=== PATIENT | male | born 1960 | race Caucasian/White ===

== ENCOUNTER 2021-05-22 10:17 | Outpatient (CLI) | payer BC, SELFPAY ==
--- NOTE | 2021-05-22 11:08 | ECG_ITS ---
Measurements Intervals [place] Rate: 80 P: 12 PA: 152 QRS: 12 QRSD: 95 T: -8 QT: 358 QTc: 415 Interpretive Statements SINUS RHYTHM NORMAL ECG NO PREVIOUS ECG AVAILABLE FOR COMPARISON Electronically Signed On 05-22-2021 15:47:28 CDT by Kush Velasquez M.D.
[2021-05-22 11:41] LABS: Basophils Absolute Auto 0.1 K/mm3 (0.0-0.1); Basophils Percent Auto 0.8 % (0.2-1.2); Eosinophils Absolute Auto 0.4 K/mm3 (0-0.3); Eosinophils Percent Auto 5.7 % (0-4.4); Hematocrit 41.4 % (42.0-52.0); Hemoglobin 13.1 g/dL (14.0-18.0); Immature Granulocyte Absolute 0.03 K/mm3 (0.00-0.031); Immature Granulocyte Percent A 0.4 % (0-0.5); Lymphocytes Absolute Auto 1.97 K/mm3 (0.9-3.2); Lymphocytes Percent Auto 26.6 % (18.3-44.2); Mean Corpuscular HGB Conc 31.6 g/dl (32-36); Mean Corpuscular Hemoglobin 20.7 pg (26-34); Mean Corpuscular Volume 65.5 fl (80-100); Mean Platelet Volume 9.2 fl (7.4-10.4); Monocytes Absolute Auto 0.5 K/mm3 (0.1-0.6); Monocytes Percent Auto 7.3 % (2.6-8.5); Neutrophils Absolute Auto 4.4 K/mm3 (1.3-6.7); Neutrophils Percent Auto 59.2 % (45.5-73.1); Platelet Count Result 208 k/mm3 (150-375); Red Blood Count 6.32 M/mm3 (4.6-6.20); Red Cell Distribution Width 17.6 % (11.5-14.5); White Blood Count 7.4 K/mm3 (4.5-10.0)
[2021-05-22 11:51] LABS: Urine Cotinine NEGATIVE
[2021-05-22 11:54] LABS: INR 1.1; Partial Thromboplastin Time 28.2 SECONDS (22.3-36.8); Prothrombin Time 13.8 Seconds (11.1-14.7)
[2021-05-22 11:56] LABS: Albumin Level 4.5 g/dL (3.5-5.1); Anion Gap 9 mmol/L (8-16); Blood Urea Nitrogen 13 mg/dL (9-20); Calcium 9.3 mg/dL (8.4-10.2); Carbon Dioxide 28 mmol/L (22-30); Chloride 100 mmol/L (98-107); Estimated Glomerular Filt Rate > 60; Glucose 100 mg/dL (65-110); Potassium 3.6 mmol/L (3.4-5.0); Sodium 137 mmol/L (137-145)
[2021-05-22 12:21] LABS: Appearance Urine Clear (Clear); Bilirubin Urine Negative (Negative); Blood Urine Negative (Negative); Color Urine Yellow (Yellow); Glucose Urine UA Negative (Negative); Ketones Urine Negative (Negative); Leukocyte Esterase Ur Negative LEU/UL (Negative); Nitrate Urine Negative (Negative); Protein Urine Negative (Negative); Urobilinogen Urine 0.2 mg/dL (<2.0)
[2021-05-22 12:24] LABS: Mucus Urine Rare /lpf; RBC Urine 0-2 /hpf (0-2); WBC Urine 0-3 /hpf
[2021-05-22 12:28] LABS: Add Urine Microscopic? YES
[2021-05-22 12:39] LABS: Hemoglobin A1C 5.1 % (<5.7)
== END 2021-05-22 10:18 | disposition home or self-care (01) ==
LOC: ANHSURGERY 10:21
PROVIDERS: PCP Internal Medicine; Visit Provider Orthopaedic Surgery
DX: Z01.818 Encounter for other preprocedural examination (principal); M17.11 Unilateral primary osteoarthritis, right knee
CPT/HCPCS: 80048; 80307; 81001; 82040; 83036; 85025; 85610; 85730; 86850; 86900; 86901; 87081; 93005

== ENCOUNTER 2021-06-05 14:31 | Observation (INO) | payer BC, SELFPAY ==
[2021-05-22 10:28] VITALS: BMI 26.6
--- NOTE | 2021-05-22 10:51 | PC.NURSE ---
Report to the Outpatient Waiting Room, entrance under the green pavilion located off [facility], at time _0830 on date __06/04/21 . OR Time: __1030 . - You and your visitor will be asked a series of questions to screen for COVID 19 for your protection. - A mask is required within the hospital. Preoperative COVID Testing Requirements: No COVID Test needed if: (proof is required; if not received patient will have Rapid Test prior to entry) - Patient has received COVID Vaccine at least 14 days prior to procedure date or - Patient has positive COVID test result within last 90 days of surgery date. COVID Test needed if above criteria is not met If not COVID vaccinated a COVID test must be conducted within 72 hours of surgery and patient is asked to isolate self from time of testing until procedure. You will go to the [employer] [facility] for your COVID testing. The [employer] [facility] is located at the corner of [address] [facility]. You will only be called if COVID results are positive and your surgeon may reschedule your elective surgery date. Patients may have clear liquids (water, carbonated beverages, clear teas, apple juice) until 3 hours prior to surgery with a maximum of 20 ounces. - No food from midnight until time of surgery - Infants may have breast milk until 4 hours before surgery, infant formula 6 hours prior to surgery. - Children will be allowed to drink immediately following surgery. If applicable, please bring a bottle or sippy cup to assist with drinking. Juice, water, soda, and popsicles are readily available. For infants on formula, please bring formula the day of surgery. Pacifiers are allowed. Take the following medications with a SIP of water the morning of surgery: _INHALER IF NEEDED,NASAL SPRAY Medications to discontinue per physician ____ALL VITAMINS AND SUPPLEMENTS 3 DAYS PRE OP Date to take last dose___05/31/21 Please no make-up, nail albanian, hairspray, perfume, deodorant, or body powder the day of surgery. No jewelry (including any body piercings) or valuables the day of surgery, leave them at home. Please take a shower or bath the night before, or the morning of, surgery with an antibacterial soap. Wear comfortable, loose fitting clothing. Children are encouraged to wear pajamas. - Jewelry must be removed prior to entering the operating room. Rings and piercings that are not removed may be cut off. - The hospital will not accept responsibility for valuables. - Please leave all valuables, including medications, at home the day of surgery. If you are going home after surgery, a licensed clamp truck driver must drive you home. - NO public transportation without another adult. - We recommend that an adult stay with you for 24 hours following discharge. - We also recommend that you do not drive, make important decision, drink alcoholic beverages, or take any drugs that were not prescribed by your health care provider for at least 24 hours after your discharge time. For Pediatric surgeries, we recommend two adults accompany the child home (only one inside the building at this time). One visitor will be allowed to accompany the patient into the hospital. Patients visitor will be instructed to remain with patient at all times or leave the building. We will allow the visitor to come back to the postoperative area when patient is ready. Follow any additional instructions given to you from your surgeon. VERBAL AND WRITTEN instructions given to ___PATIENT and asked if any additional questions and then verbalized understanding. Patient advised to call surgeon office or pre surgery nurse liaison [phone] if any additional questions.
[2021-05-22 11:07] VITALS: BP 136/87; PULSE 71; RESP 18; TEMP 37; O2SAT 99
[2021-06-04] VITALS (12 sets, daily range): BP systolic 118–150; BP diastolic 67–89; PULSE 62–91; RESP 11–20; TEMP 36.1–36.9; O2SAT 93–99
--- NOTE | 2021-06-04 07:07 | WPDHPUPDATE1 ---
History and Physical Update Update Date/Time: 06/04/21 07:07 History and Physical has been reviewed, including an updated exam of the patient. There are NO changes in the patient's condition. Risks, benefits, and alternatives have been discussed and questions answered. Patient agrees to proceed with procedure.
--- NOTE | 2021-06-04 09:12 | WPDANESEPPF ---
Anes - Initial Pre Proc Eval Procedure: Operation Date: 06/04/21 10:30 Proposed Procedures p Right Total Knee Arthroplasty - Chucho Carvajal MD Date/Time: 06/04/21 09:12 Surgeon: Chucho Carvajal MD Pre Op Diagnosis: right knee djd Patient Data Age: 60 Gender: M Height: 1.78 m Weight: 84.3 kg Last Vital Signs Temp 37.0 C 05/22/21 11:07 Pulse 71 05/22/21 11:07 Resp 18 05/22/21 11:07 BP 136/87 05/22/21 11:07 Pulse Ox 99 05/22/21 11:07 Allergies Allergy/AdvReac Type Severity Reaction Status Date / Time NSAIDS (Non-Steroidal Allergy Difficulty Verified 06/04/21 09:13 Anti-Inflamma Breathing Home Medications Medication Instructions Recorded Confirmed Type diphenhydramine HCl 25 mg capsule 25 mg PO TID PRN 11/07/19 05/26/21 History losartan 100 1 tablet PO DAILY 11/07/19 06/04/21 History mg-hydrochlorothiazide 25 mg tablet brlmrkfmxcfa-fuddugwb-gyvqze tablet 1 tablet PO DAILY 11/07/19 06/04/21 History phenylephrine HCl 10 mg tablet 10 mg PO Q4-6H PRN 11/07/19 06/04/21 History tamsulosin 0.4 mg capsule 0.4 mg PO DAILY 11/07/19 06/04/21 History vit C,L-Cx-rsouo-lutein-zeaxan 1 tablet PO DAILY 11/07/19 06/04/21 History [PreserVision AREDS-2] acetaminophen [Tylenol] 650 mg PO PRN PRN 05/22/21 06/04/21 History albuterol 1 mcg INHALATION PRN PRN 05/22/21 06/04/21 History azelastine 1 spray INTRANASAL HS 05/22/21 06/04/21 History budesonide 0.5 mg INHALATION DAILY 05/22/21 05/26/21 History fluticasone furoate-vilanterol 2 ea INHALATION PRN PRN 05/22/21 06/04/21 History [Breo Ellipta] chlorhexidine gluconate 4 % 1 applic TOPICAL ONCE #237 ml 05/26/21 05/26/21 Rx topical liquid Patient hx anesthesia problems: none Family hx anesthesia problems: none Results Review: All pre-operative results and documents have been reviewed as part of the pre-operative evaluation. [facility] Past Medical History Medical History (Updated 06/04/21 @ 09:12 by Quentin Palmer DO) Anemia Asthma Bilateral knee pain Degenerative joint disease of knee Hypertension Kidney stones Knee effusion Left knee DJD Right knee DJD Skin cancer Thalassemia Family History Family History Other Diabetes mellitus Hypertension Social History Social History (Updated 04/17/21 @ 12:10 by Celeste Chin MA) Additional smoking assessment comments: DENIES ANY FORM OF TOBACCO USE Alcohol intake: current Drinks per week: 1 Substance use: never Living arrangements: with family Gender identity (if verbalized by the patient): Male Spiritual care concerns: No Anes - Eval Final PreProcedure Day of Procedure 06/04/21 09:12 Patient weight: overweight Heart: regular rate and rhythm Lungs: clear to auscultation and normal air movement Airway: Mallampati scale class II Neurological: alert and oriented Last oral intake: >/= 8 hours ASA classification: II Emergent: no Anesthetic plan: proceed Anesthesia type and monitoring: general LMA and standard monitoring Results Review: All pre-operative results and documents have been reviewed as part of the pre-operative evaluation. Informed Consent: The patient's anesthetic plan and its attendant risks and benefits were discussed with the patient/family/POA. Questions were solicited and answers provided to the satisfaction of the patient/family/POA.
--- NOTE | 2021-06-04 09:12 | WPDANESPNB ---
Anes - Peripheral Nerve Block Date/Time: 06/04/21 09:12 I have discussed with the patient/family/POA the placement of a peripheral nerve block for post-operative pain management, including associated risks, benefits, complications, and side effects. Alternative methods of post-operative analgesia were detailed. Questions were solicited and answers provided to the satisfaction of the patient/family/POA. Time-Out: A pre-procedural Time-Out was completed immediately before starting the procedure and confirmed: Patient Identification, Site, Procedure, Patient Position and the Availability of Requisite Equipment. Clinical Indications: Acute post-operative pain management requested by the operative surgeon. Nerve Block Insertion Note Anes-nerve block: adductor canal right Patient position: supine Skin prep: chlorhexidine Needle: 22 gauge, stimulating, insulated echogenic needle. Needle length: 80 mm Technique: ultrasound Injectate: bupivacaine 0.5% with epi 5 mcg/ml (30cc - no epi) Observations: tolerated well Complications: none Procedure start time:: 1005 Procedure end time:: 100
[2021-06-04] MEDS: ACETAMINOPHEN 500 MG TABLET 1000 MG PO (09:25)
[2021-06-04] MEDS: TRANEXAMIC ACID 1,000MG/ISO100 1,000 MG/100 ML BAG 200 MG IVPB (09:35)
[2021-06-04] MEDS: LACTATED RINGERS 1,000 ML 30 ML IV CONT ×2 (09:35→12:07)
[2021-06-04] MEDS: ceFAZolin 2 GM/D5W 50 ML 2 GM/50 ML BAG IVPB ×2 (10:12→17:50)
[2021-06-04] MEDS: TRANEXAMIC ACID 1,000 MG/10 ML AMPUL 1000 MG IV PUSH (11:20)
--- NOTE | 2021-06-04 12:09 | W.PM.PROC2 ---
Procedure Note - Detailed Date of Procedure 06/04/21 Pre-op Diagnosis right knee djd Post-op Diagnosis Same Procedure Performed R TKA Surgeon Chucho Carvajal MD Anesthesia General Description of Procedure THE RIGHT KNEE WAS PREPPED AND DRAPED IN THE STERILE FASHION. THERE WAS A 10 DEGREE FLEXION CONTRACTURE. A MIDLINE SKIN INCISION WAS MADE. A MEDIAL PARAPATELLAR ARTHROTOMY WAS MADE. THE PATELLA WAS EVERTED. THERE WAS TRICOMPARTMENT DJD. THERE WAS MINIMAL PATELLA DJD. AN INTRAMEDULLARY RAMIRO WAS PLACED IN THE FEMUR. A DISTAL FEMORAL CUT WAS MADE IN 5 DEGREES OF VALGUS REMOVING APPROXIMATELY 9 MM OF BONE FROM THE DISTAL FEMUR. THE FEMUR WAS SIZED TO 65. A 65 FEMORAL CUTTING BLOCK WAS PLACED IN 3 DEGREES OF EXTERNAL ROTATION AND IN ALIGNMENT WITH ERAN'S LINE AND THE TRANSEPICONDYLAR AXIS. ANTERIOR POSTERIOR AND CHAMFER CUTS WERE MADE. THE CUTS WERE EXCELLENT. NEXT AN INTRAMEDULLARY CUTTING GUIDE WAS PLACED IN THE TIBIA. A TRANS TIBIAL CUT WAS MADE ALONG THE LONG AXIS OF THE TIBIA. APPROXIMATELY 10 MM OF BONE WAS REMOVED FROM THE HIGH SIDE OF THE TIBIA. THE TIBIA WAS THEN PLANED TO A SMOOTH SURFACE. POSTERIOR FEMORAL OSTEOPHYTES WERE REMOVED FROM THE FEMORAL CONDYLES. A 71 TIBIAL TRIAL WAS PLACED IN ALIGNMENT WITH THE 1/3 MEDIAL ASPECT OF THE TIBIAL TUBERCLE. THEN A 65 FEMORAL TRIAL COMPONENT WAS PLACED. BOTH HAD EXCELLENT FITS. EVENTUALLY A 10 MM CR POLYETHYLENE TRIAL COMPONENT WAS PLACED. THE KNEE WAS TAKEN THROUGH A RANGE OF MOTION. THE KNEE CAME OUT TO FULL EXTENSION. THERE WAS NO ABNORMAL TILT TO THE PATELLA. THERE WAS GOOD A/P AND VARUS/VALGUS STABILITY. THERE WAS NO EXCESSIVE ROLL BACK WITH FLEXION. THE TRIAL COMPONENTS WERE REMOVED. THEN A 65 FEMORAL COMPONENT AND 71 TIBIAL COMPONENT WITH A 10 CR POLYETHYLENE COMPONENT WERE CEMENTED INTO PLACE. ONCE THE CEMENT WAS HARD THE KNEE WAS TAKEN THROUGH A ROM AGAIN AND FOUND TO BE STABLE WITH NO PATELLA TILT NO EXCESSIVE ROLL BACK WITH FLEXION AND GOOD STABILITY WITH COMPLETE AND FULL EXTENSION. THE KNEE WAS IRRIGATED WITH STERILE BETADINE AND WATER FOR ABOUT 3 MINUTES. THE BLEEDERS WERE CAUTERIZED. THE ARTHROTOMY WAS REPAIRED WITH NUMBER 1 VICRYL. THE SUB CUTANEOUS LAYER WITH 2-0 VICRYL AND 3-0 STRATAFIX AND THEN DERMABOND ON THE SKIN. THE WOUND WAS WASHED AND A STERILE DRESSING WAS APPLIED. PATIENT WAS EXTUBATED. Estimated Blood Loss -150.0 Pathology None sent Complications No immediate complications Condition Stable Disposition PACU
[2021-06-04] MEDS: fentaNYL CITRATE INJ (*CRX) 100 MCG/2 ML VIAL 25 MCG IV PUSH ×2 (12:37→12:45)
--- NOTE | 2021-06-04 13:16 | ADMGEN ---
This patient, Matt Prabhakar, was admitted to Medical Room 247-. Patient/family oriented to hospital policies and general routines including ID bracelet, bed and alarms, visiting hours, pain management, procedures, bathroom and other care routines, personal items, smoking policy, room service/diet, and visiting hours. Information on how to activate the Rapid Response Team has been discussed. Patient/Family are encouraged to report perceived risks to care and to ask questions if they do not understand what they are told or what they should do.
[2021-06-04] MEDS: oxyCODONE/ACETAMINOPHEN (*CRX) 5-325 MG TABLET 1 TABLET PO (13:47)
[2021-06-04] MEDS: SODIUM CHLORIDE 0.9% IV 1,000 ML 125 ML IV CONT (13:48)
[2021-06-04] MEDS: ONDANSETRON INJ 4 MG/2 ML VIAL IV PUSH (14:30)
[2021-06-04] MEDS: SENNA/DOCUSATE SODIUM TABLET 2 TAB PO (16:43)
[2021-06-04] MEDS: oxyCODONE/ACETAMINOPHEN (*CRX) 5-325 MG TABLET 2 TABLET PO ×2 (17:46→23:39)
[2021-06-04] MEDS: diazePAM (*CRX) 5 MG TABLET PO (19:23)
[2021-06-04] MEDS: RIVAROXABAN 10 MG TABLET PO (21:39)
[2021-06-04] MEDS: MORPHINE SULFATE (*CRX) 2 MG/ML INJ 3 MG IV PUSH (21:40)
[2021-06-04] MEDS: hydrOXYzine pamoate 25 MG CAPSULE 50 MG PO (21:40)
[2021-06-05] VITALS (8 sets, daily range): BP systolic 125–158; BP diastolic 66–80; PULSE 72–92; RESP 12–18; TEMP 36.2–36.7; O2SAT 95–97
--- NOTE | ~2021-06-05 | XR_ITS ---
EXAMINATION: XR knee RT 2V DATE: 06/04/2021 12:29 INDICATION: Right knee arthroplasty. Postop. TECHNIQUE: 2 views of right knee were obtained. COMPARISON: Right knee radiographs 04/17/2021 FINDINGS: There is a total right knee arthroplasty without patellar resurfacing in near-anatomic alig nment. No fracture. There has been resection of osteophytes of the patella. There is gas in the knee joint and soft tissues, consistent with recent surgery. IMPRESSION: 1. Total right knee arthroplasty in near-anatomic alignment. Reviewed, dictated and finalized at location A.
[2021-06-05] MEDS: ceFAZolin 2 GM/D5W 50 ML 2 GM/50 ML BAG IVPB ×2 (01:38→11:04)
[2021-06-05] MEDS: MORPHINE SULFATE (*CRX) 2 MG/ML INJ 3 MG IV PUSH ×4 (01:39→20:38)
[2021-06-05] MEDS: oxyCODONE/ACETAMINOPHEN (*CRX) 5-325 MG TABLET 2 TABLET PO ×4 (05:38→23:45)
[2021-06-05 05:41] LABS: Basophils Percent Auto 0.3 % (0.2-1.2); Eosinophils Percent Auto 0.2 % (0-4.4); Hematocrit 30.9 % (42.0-52.0); Hemoglobin 10.1 g/dL (14.0-18.0); Immature Granulocyte Absolute 0.07 K/mm3 (0.00-0.031); Immature Granulocyte Percent A 0.6 % (0-0.5); Lymphocytes Absolute Auto 1.54 K/mm3 (0.9-3.2); Mean Corpuscular HGB Conc 32.7 g/dl (32-36); Mean Corpuscular Hemoglobin 20.6 pg (26-34); Mean Corpuscular Volume 63.1 fl (80-100); Mean Platelet Volume 9.3 fl (7.4-10.4); Monocytes Absolute Auto 1.2 K/mm3 (0.1-0.6); Monocytes Percent Auto 10.9 % (2.6-8.5); Neutrophils Absolute Auto 8.1 K/mm3 (1.3-6.7); Platelet Count Result 171 k/mm3 (150-375); Red Cell Distribution Width 14.9 % (11.5-14.5)
[2021-06-05 05:50] LABS: Anion Gap 7 mmol/L (8-16); Blood Urea Nitrogen 10 mg/dL (9-20); Calcium 8.2 mg/dL (8.4-10.2); Carbon Dioxide 26 mmol/L (22-30); Chloride 93 mmol/L (98-107); Estimated CRCL calculation 87 ml/min; Estimated Glomerular Filt Rate > 60; Glucose 138 mg/dL (65-110); Potassium 3.2 mmol/L (3.4-5.0); Sodium 126 mmol/L (137-145)
[2021-06-05] MEDS: ONDANSETRON INJ 4 MG/2 ML VIAL IV PUSH (07:40)
[2021-06-05] MEDS: polyethylene glycoL 3350 17 GM POWD.PACK PO (08:36)
[2021-06-05] MEDS: SENNA/DOCUSATE SODIUM TABLET 2 TAB PO ×2 (08:36→17:57)
[2021-06-05] MEDS: LOSARTAN POTASSIUM 100 MG TABLET PO (08:36)
[2021-06-05] MEDS: TAMSULOSIN HCL 0.4 MG CAPSULE PO (08:36)
[2021-06-05] MEDS: diazePAM (*CRX) 5 MG TABLET PO (08:36)
--- NOTE | 2021-06-05 10:17 | WPDANESPN ---
Anes - Prog Note Post-Op Date/Time: 06/05/21 10:17 Cardiovascular status: normal Respiratory status: normal Airway patency: baseline Mental status: baseline Post-Op hydration status: normal Vital Signs: Last Vital Signs Temp 36.2 C L 06/05/21 06:25 Pulse 85 06/05/21 06:25 Resp 18 06/05/21 06:25 BP 126/67 06/05/21 06:25 Pulse Ox 96 06/05/21 06:25 Pain Score (VAS): 4 I/O: Intake & Output 06/04/21 06/05/21 06/05/21 23:59 07:59 15:59 Intake Total 1060 600 Output Total 1050 700 Balance 10 -100 Laboratory Tests 06/05/21 05:12 06/05/21 05:12 06/05/21 06/05/21 05:12 05:12 WBC 11.0 H RBC 4.90 Hgb 10.1 L D Hct 30.9 L MCV 63.1 L MCH 20.6 L MCHC 32.7 RDW 14.9 H Plt Count 171 MPV 9.3 Immature Gran % (Auto) 0.6 H Neut % (Auto) 74.0 H Lymph % (Auto) 14.0 L Bleck[place] % (Auto) 10.9 H Eos % (Auto) 0.2 Baso % (Auto) 0.3 Lymph # (Auto) 1.54 [place]ck[place] # (Auto) 1.2 H Eos # (Auto) 0.0 Baso # (Auto) 0.0 Abs Immat Gran (auto) 0.07 H Absolute Neuts (auto) 8.1 H Absolute Nucleated RBC 0.0 Nucleated RBC % 0.0 Sodium 126 L Potassium 3.2 L Chloride 93 L Carbon Dioxide 26 Anion Gap 7 L BUN 10 Creatinine 0.80 Estim Creat Clear Calc 87 Estimated GFR > 60 Glucose 138 H Calcium 8.2 L Post-procedural complaints: none Patient Feedback: Patient satisfied with anesthetic care.
--- NOTE | 2021-06-05 10:18 | PM.PNORT ---
Progress Note: A&P Assessment and Plan (1) S/P total knee arthroplasty: Qualifiers: Laterality: right Qualified Code(s): Z96.651 - Presence of right artificial knee joint Code(s): Z96.659 - Presence of unspecified artificial knee joint Status: Acute Assessment and Plan: POD #1: Right TKA Difficulty with nausea, continue antiemetic. Continue PT/OT. WBAT. Walker. FALL RISK. Pain control, nursing notified of increased pain. DVT prophylaxis. SCDs. Incentive spirometry. Monitor dressing. Change before discharge. Dispo: Home with home health pending improvement in pain control and progress with PT/OT. Time Spent With Patient Time with patient: less than 15 minutes Subjective Subjective Date/Time Seen: 06/05/21 10:18 Post Op day: 1 Interval history: POD #1: Right TKA Difficulty with pain control this morning. Nausea, no vomiting. Decreased appetite. Slow progress with PT/OT. Review of Systems Constitutional: Constitutional: Denies fatigue, Denies fever(s) and Denies weakness Cardiovascular: Cardiovascular: Denies chest pain, Denies lightheadedness and Denies palpitations Respiratory: Respiratory: Denies cough, Denies dyspnea and Denies wheezing Gastrointestinal: Gastrointestinal: Denies abdominal pain, Reports nausea and Denies vomiting Genitourinary: Genitourinary: Denies dysuria Musculoskeletal: Musculoskeletal: Reports as per HPI Exam Const: General: comfortable and no acute distress Resp: Effort & Inspection: normal respiratory effort Cardio: Rate: regular rate Rhythm: regular rhythm GI: GI Palp: Yes Soft to palpation, No Tenderness to palpation present (GI) and No Guarding due to palpation present (GI) Skin: Wounds: wounds noted Other: Incision c/d/i. No surrounding redness/warmth. No hematoma. Mild ecchymosis. No wound dehiscence Neuro: Cognition (Neuro): normal cognition Other: NV intact aside from block. Moves toes. Sensation intact to light touch. +ankle dorsiflexion/plantarflexion. Extrem: Right lower extremity: normal to inspection and knee Details: tenderness (diffuse, mild ), swelling (diffuse, mild ), abnormal ROM (limited due to recent surgical intervention ) and ecchymosis (mild medial lower leg ) Psych: Mental Status: mental status grossly normal Objective Data Vital Signs Vital Signs: Vital Signs - 24 hr 06/04/21 12:07 06/04/21 12:25 06/04/21 12:40 Temperature 36.4 C Pulse Rate 67 90 74 Respiratory Rate 11 L 18 18 Blood Pressure 118/67 121/74 137/74 Pulse Oximetry 97 97 97 06/04/21 12:55 06/04/21 13:27 06/04/21 13:36 Temperature 36.6 C 36.3 C L Pulse Rate 84 71 67 Respiratory Rate 19 14 12 Blood Pressure 130/79 131/70 134/71 Pulse Oximetry 96 93 96 06/04/21 13:54 06/04/21 15:09 06/04/21 17:50 Temperature 36.9 C 36.3 C L 36.6 C Pulse Rate 91 62 72 Respiratory Rate 12 12 16 Blood Pressure 126/74 121/67 132/69 Pulse Oximetry 96 97 99 06/04/21 20:20 06/04/21 22:54 06/05/21 02:54 Temperature 36.1 C L 36.4 C Pulse Rate 80 85 Respiratory Rate 20 18 Blood Pressure 136/67 125/69 Pulse Oximetry 98 99 97 06/05/21 06:25 Temperature 36.2 C L Pulse Rate 85 Respiratory Rate 18 Blood Pressure 126/67 Pulse Oximetry 96 Intake/Output Intake/Output: Intake & Output 06/02/21 06/03/21 06/04/21 06/05/21 23:59 23:59 23:59 23:59 Intake Total 1610 600 Output Total 1050 700 Balance 560 -100 Meds/Results Medications: Active Medications Generic Name Dose Route Start Last Admin Trade Name Freq PRN Reason Stop Dose Admin Acetaminophen 650 mg 06/04/21 13:09 Acetaminophen 325 Mg Tablet PO PRN PRN Pain 1-3 Albuterol 1 puff 06/04/21 13:34 Albuterol Sulfate (*Sp) Aerosol 1 Puff INHALATION PRN PRN Shortness Of Breath Diazepam 5 mg 06/04/21 13:09 06/05/21 08:36 Diazepam (*Crx) 5 Mg Tablet PO 5 mg Q8H PRN Administration Spasms Diphenhydramine HCl 25 mg 06/04
[2021-06-05 11:21] LABS: Magnesium 1.6 mg/dL (1.6-2.3)
[2021-06-05] MEDS: POTASSIUM CHLORIDE 20 MEQ PACKET (FOR LIQUID) 40 MEQ PO (11:41)
--- NOTE | 2021-06-05 14:27 | P.CONIM_ITS ---
Assessment and Plan Assessment and plan (1) S/P total knee arthroplasty: Qualifiers: Laterality: right Qualified Code(s): Z96.651 - Presence of right artificial knee joint Code(s): Z96.659 - Presence of unspecified artificial knee joint Status: Acute Assessment and Plan: * POD 0 * Ortho to manage post op care * Pain medication * Antibiotic: cefazolin x3 bags * Zofran from nausea * PT/OT * DVT prophylaxis per ortho (2) Hyponatremia: Code(s): E87.1 - Hypo-osmolality and hyponatremia Status: Acute Assessment and Plan: * NA 126 * Sodium chloride at 100ml/hr * Trend sodium * Repeat lab at 1999 * Consider nephrology consult * Hold HCTZ which could cause hyponatremia (3) Hypokalemia: Code(s): E87.6 - Hypokalemia Status: Acute Assessment and Plan: * K is 3.2 * Replaced with 40 PO potassium * trend labs replace as indicated (4) Hypomagnesemia: Code(s): E83.42 - Hypomagnesemia Status: Acute Assessment and Plan: * Mg 1.6 * Replace with 4 grams * Trend labs * Replace as indicated (5) BPH (benign prostatic hyperplasia): Code(s): N40.0 - Benign prostatic hyperplasia without lower urinary tract symptoms Status: Acute Assessment and Plan: * Continue home tamsulosin * Trend urine output * bladder scan PRN (6) Hypertension: Code(s): I10 - Essential (primary) hypertension Status: Acute Assessment and Plan: * Current BP is 141/69 * Continue home losartan * Hold HCTZ due to hyponatremia * trend BP * Adjust therapy as indicated HPI Data of Consult Consult date: 06/05/21 Requesting Physician: Chucho Carvajal MD Primary Care Provider: CRUZ,PRABHJOT Harvey MD Consult Narrative Narrative: Matt Prabhakar is a 60 year old male with past medical history of hypertension, kidney stones, BPH, basal cell carcinoma who was admitted from an elective total knee replacement on the right side with Dr. Childress today 06/05/2021. Postsurgical procedure patient was noted to have an electrolyte imbalance with a sodium of 126 and a potassium of 3.2. Patient does state that he has lots of pain 8/10. He denies any increased confusion however has been tired more than usual. He did state that he drinks a lot of water roughly 64 oz a day. Asked if he was having urinary difficulties any stated would goes and comes out sometimes just longer than others. He iterated that he does not feel like he fully empties all the time however no takes that he has had many kidney stones and lithotripsies in the past. Currently patient feels okay except for the pain. He denies any chest pain, shortness of breath, nausea, vomiting, diarrhea, constipation, weakness, fatigue, sweats, fevers, chills, numbness, tingling, headaches. Patient is being admitted to the hospital service under observation for electrolyte abnormalities Review of Systems 2 Review of Systems: All systems reviewed & are unremarkable except as noted in HPI and below PMFSH Past Medical History Medical History (Updated 06/05/21 @ 14:59 by Ephraim Gurrola, [employer]) Anemia Asthma Bilateral knee pain Degenerative joint disease of knee Hypertension Kidney stones Knee effusion Left knee DJD Right knee DJD Sinusitis Skin cancer Thalassemia Surgical History Surg
--- NOTE | 2021-06-05 14:27 | PM.IMCN ---
Assessment and Plan Assessment and plan (1) S/P total knee arthroplasty: Qualifiers: Laterality: right Qualified Code(s): Z96.651 - Presence of right artificial knee joint Code(s): Z96.659 - Presence of unspecified artificial knee joint Status: Acute Assessment and Plan: POD 0 Ortho to manage post op care Pain medication Antibiotic: cefazolin x3 bags Zofran from nausea PT/OT DVT prophylaxis per ortho (2) Hyponatremia: Code(s): E87.1 - Hypo-osmolality and hyponatremia Status: Acute Assessment and Plan: NA 126 Sodium chloride at 100ml/hr Trend sodium Repeat lab at 1999 Consider nephrology consult Hold HCTZ which could cause hyponatremia (3) Hypokalemia: Code(s): E87.6 - Hypokalemia Status: Acute Assessment and Plan: K is 3.2 Replaced with 40 PO potassium trend labs replace as indicated (4) Hypomagnesemia: Code(s): E83.42 - Hypomagnesemia Status: Acute Assessment and Plan: Mg 1.6 Replace with 4 grams Trend labs Replace as indicated (5) BPH (benign prostatic hyperplasia): Code(s): N40.0 - Benign prostatic hyperplasia without lower urinary tract symptoms Status: Acute Assessment and Plan: Continue home tamsulosin Trend urine output bladder scan PRN (6) Hypertension: Code(s): I10 - Essential (primary) hypertension Status: Acute Assessment and Plan: Current BP is 141/69 Continue home losartan Hold HCTZ due to hyponatremia trend BP Adjust therapy as indicated HPI Data of Consult Consult date: 06/05/21 Requesting Physician: Chucho Carvajal MD Primary Care Provider: CRUZ,PRABHJOT Harvey MD Consult Narrative Narrative: Matt Prabhakar is a 60 year old male with past medical history of hypertension, kidney stones, BPH, basal cell carcinoma who was admitted from an elective total knee replacement on the right side with Dr. Childress today 06/05/2021. Postsurgical procedure patient was noted to have an electrolyte imbalance with a sodium of 126 and a potassium of 3.2. Patient does state that he has lots of pain 8/10. He denies any increased confusion however has been tired more than usual. He did state that he drinks a lot of water roughly 64 oz a day. Asked if he was having urinary difficulties any stated would goes and comes out sometimes just longer than others. He iterated that he does not feel like he fully empties all the time however no takes that he has had many kidney stones and lithotripsies in the past. Currently patient feels okay except for the pain. He denies any chest pain, shortness of breath, nausea, vomiting, diarrhea, constipation, weakness, fatigue, sweats, fevers, chills, numbness, tingling, headaches. Patient is being admitted to the hospital service under observation for electrolyte abnormalities Review of Systems Review of Systems: All systems reviewed & are unremarkable except as noted in HPI and below PMFSH Past Medical History Medical History (Updated 06/05/21 @ 14:59 by JUDE Everett) Anemia Asthma Bilateral knee pain Degenerative joint disease of knee Hypertension Kidney stones Knee effusion Left knee DJD Right knee DJD Sinusitis Skin cancer Thalassemia Surgical History Surgical History (Updated 06/05/21 @ 14:31 by JUDE Everett) H/O lithotripsy S/P total knee arthroplasty Family History Family History Other Diabetes mellitus Hypertension Social History Social History (Updated 06/05/21 @ 14:45 by JUDE Everett) Social History: patient's shared will be his surrogate and patient wishes to be a full code at this time. They have 2 kids 26 and 22-year-old with no pets at home. Patient is [employer] Smoking status: Never smoker Second hand tobacco smoke exposur
[2021-06-05] MEDS: MAGNESIUM SULF 4 GM/WATER100ML 4 GM/100 ML BAG IVPB (15:41)
[2021-06-05] MEDS: SODIUM CHLORIDE 0.9% IV 1,000 ML 100 ML IV CONT (15:41)
[2021-06-05] MEDS: RIVAROXABAN 10 MG TABLET PO (17:57)
[2021-06-06] VITALS (8 sets, daily range): BP systolic 140–153; BP diastolic 7–79; PULSE 83–92; RESP 14–21; TEMP 36.8–37.8; O2SAT 95–100
[2021-06-06] MEDS: SODIUM CHLORIDE 0.9% IV 1,000 ML 100 ML IV CONT (04:38)
[2021-06-06 06:12] LABS: Basophils Percent Auto 0.2 % (0.2-1.2); Eosinophils Absolute Auto 0.1 K/mm3 (0-0.3); Eosinophils Percent Auto 0.4 % (0-4.4); Hematocrit 29.1 % (42.0-52.0); Hemoglobin 9.4 g/dL (14.0-18.0); Immature Granulocyte Absolute 0.11 K/mm3 (0.00-0.031); Immature Granulocyte Percent A 0.8 % (0-0.5); Lymphocytes Absolute Auto 1.39 K/mm3 (0.9-3.2); Lymphocytes Percent Auto 10.7 % (18.3-44.2); Mean Corpuscular HGB Conc 32.3 g/dl (32-36); Mean Corpuscular Hemoglobin 20.9 pg (26-34); Mean Corpuscular Volume 64.8 fl (80-100); Mean Platelet Volume 9.8 fl (7.4-10.4); Monocytes Absolute Auto 1.3 K/mm3 (0.1-0.6); Monocytes Percent Auto 9.7 % (2.6-8.5); Neutrophils Absolute Auto 10.1 K/mm3 (1.3-6.7); Neutrophils Percent Auto 78.2 % (45.5-73.1); Platelet Count Result 159 k/mm3 (150-375); Red Blood Count 4.49 M/mm3 (4.6-6.20); Red Cell Distribution Width 15.1 % (11.5-14.5)
[2021-06-06 06:16] LABS: Alanine Aminotransferase 20 U/L (4-50); Albumin Level 3.1 g/dL (3.5-5.1); Alkaline Phosphatase 46 U/L (38-126); Anion Gap 4 mmol/L (8-16); Aspartate Amino Transferase 27 U/L (17-59); Bilirubin,Total 0.8 mg/dL (0.2-1.3); Blood Urea Nitrogen 6 mg/dL (9-20); Calcium 7.6 mg/dL (8.4-10.2); Carbon Dioxide 26 mmol/L (22-30); Chloride 92 mmol/L (98-107); Estimated CRCL calculation 99 ml/min; Estimated Glomerular Filt Rate > 60; Glucose 129 mg/dL (65-110); Magnesium 2.1 mg/dL (1.6-2.3); Potassium 3.6 mmol/L (3.4-5.0); Sodium 122 mmol/L (137-145)
[2021-06-06] MEDS: oxyCODONE/ACETAMINOPHEN (*CRX) 5-325 MG TABLET 2 TABLET PO ×2 (08:21→16:58)
[2021-06-06] MEDS: TAMSULOSIN HCL 0.4 MG CAPSULE PO (08:22)
[2021-06-06] MEDS: SODIUM CHLORIDE 500 MG TABLET PO ×2 (08:22→16:54)
[2021-06-06] MEDS: SENNA/DOCUSATE SODIUM TABLET 2 TAB PO ×2 (08:22→16:54)
[2021-06-06] MEDS: polyethylene glycoL 3350 17 GM POWD.PACK PO (08:22)
[2021-06-06] MEDS: LOSARTAN POTASSIUM 100 MG TABLET PO (08:23)
[2021-06-06 08:24] LABS: Sodium Urine Random 72 meq/L
--- NOTE | 2021-06-06 09:39 | PM.PNORT ---
Progress Note: A&P Assessment and Plan (1) S/P total knee arthroplasty: Qualifiers: Laterality: right Qualified Code(s): Z96.651 - Presence of right artificial knee joint Code(s): Z96.659 - Presence of unspecified artificial knee joint Status: Acute Assessment and Plan: POD #2: Right TKA Continue PT/OT. WBAT. Walker. FALL RISK. Pain control. Ice. DVT prophylaxis. SCDs. Incentive spirometry. Monitor dressing. Change before discharge. Dispo: Home with home health pending medical stability. (2) Hyponatremia: Code(s): E87.1 - Hypo-osmolality and hyponatremia Status: Acute Assessment and Plan: Continued hyponatremia at 122 now. Medicine team following. Fluid restrictions and monitor labs Q6H. Appreciate recommendations. HCTZ held again today. (3) Hypokalemia: Code(s): E87.6 - Hypokalemia Status: Acute Assessment and Plan: Potassium repleted on 06/05 with 40mEq. K now 3.6. Appreciate medicine team input. (4) Hypomagnesemia: Code(s): E83.42 - Hypomagnesemia Status: Acute Assessment and Plan: Magnesium repleted on 06/05. Magnesium now 2.1. (5) BPH (benign prostatic hyperplasia): Code(s): N40.0 - Benign prostatic hyperplasia without lower urinary tract symptoms Status: Acute Subjective Subjective Date/Time Seen: 06/06/21 09:39 Interval history: POD #2: Right TKA Improvement in pain control today. Rating 5/10 with PT/OT. Improvement in nausea/appetite. No new concerns aside from hyponatremia. Now on fluid restrictions. Review of Systems Constitutional: Constitutional: Denies fatigue, Denies fever(s) and Denies weakness Cardiovascular: Cardiovascular: Denies chest pain, Denies lightheadedness and Denies palpitations Respiratory: Respiratory: Denies cough, Denies dyspnea and Denies wheezing Gastrointestinal: Gastrointestinal: Denies abdominal pain, Denies nausea and Denies vomiting Genitourinary: Genitourinary: Denies dysuria Musculoskeletal: Musculoskeletal: Reports as per HPI Objective Data Vital Signs Vital Signs: Vital Signs - 24 hr 06/05/21 10:05 06/05/21 14:30 06/05/21 16:15 Temperature 36.7 C 36.3 C L 36.3 C L Pulse Rate 72 78 92 Respiratory Rate 14 12 16 Blood Pressure 136/66 141/69 H 145/73 H Pulse Oximetry 97 96 95 06/05/21 20:00 06/05/21 21:08 06/05/21 22:00 Temperature 36.2 C L Pulse Rate 92 81 Respiratory Rate 16 18 Blood Pressure 158/80 H Pulse Oximetry 96 96 97 06/06/21 02:00 06/06/21 06:00 Temperature 36.9 C 36.8 C Pulse Rate 88 83 Respiratory Rate 18 18 Blood Pressure 153/73 H 148/79 H Pulse Oximetry 96 96 Intake/Output Intake/Output: Intake & Output 06/03/21 06/04/21 06/05/21 06/06/21 23:59 23:59 23:59 23:59 Intake Total 1610 2160 4040 Output Total 1050 1250 1000 Balance 484 713 7702 Meds/Results Medications: Active Medications Generic Name Dose Route Start Last Admin Trade Name Freq PRN Reason Stop Dose Admin Acetaminophen 650 mg 06/04/21 13:09 Acetaminophen 325 Mg Tablet PO PRN PRN Pain 1-3 Albuterol 1 puff 06/04/21 13:34 Albuterol Sulfate (*Sp) Aerosol 1 Puff INHALATION PRN PRN Shortness Of Breath Diazepam 5 mg 06/04/21 13:09 06/05/21 08:36 Diazepam (*Crx) 5 Mg Tablet PO 5 mg Q8H PRN Administration Spasms Diphenhydramine HCl 25 mg 06/04/21 13:09 Diphenhydramine Hcl Inj 50 Mg/Ml Vial IV PUSH Q6H PRN Itching Hydroxyzine Pamoate 50 mg 06/04/21 21:07 06/04/21 21:40 Hydroxyzine Pamoate 25 Mg Capsule PO 50 mg Q4H PRN Administration Itching Losartan Potassium 100 mg 06/05/21 09:00 06/06/21 08:23 Losartan Potassium 100 Mg Tablet PO 100 mg DAILY KATRINA Administration Morphine Sulfate 3 mg 06/04/21 21:09 06/05/21 20:38 Morphine Sulfate (*Crx) 2 Mg/Ml Inj IV PUSH 3 mg Q3H PRN Administration Pain Rated 7-10 Naloxone HCl 0.1 mg 04
[2021-06-06 11:45] LABS: Sodium 123 mmol/L (137-145)
--- NOTE | 2021-06-06 15:15 | P.PNIM_ITS ---
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 * Completed antibiotic: cefazolin x3 bags * Continue current pain control regiment. * Continue PT/OT * DVT prophylaxis per ortho (2) Hyponatremia: Code(s): E87.1 - Hypo-osmolality and hyponatremia Status: Acute Assessment and Plan: * NA 122 this morning. * [place] 72 and UCr 52 with FENa 0.8%. TSH and Cortisol level okay. * Suspect SIADH related to pain * IV fluids stopped. * HCTZ held * Add NaCl tabs and start fluid restriction. * Q6H Na levels. (3) Hypokalemia: Code(s): E87.6 - Hypokalemia Status: Acute Assessment and Plan: * K+ was 3.2 and was replaced. * Potassium normal now * Follow (4) Hypomagnesemia: Code(s): E83.42 - Hypomagnesemia Status: Acute Assessment and Plan: * Mg 1.6 and was replaced * Mag level normal now. * Follow (5) BPH (benign prostatic hyperplasia): Code(s): N40.0 - Benign prostatic hyperplasia without lower urinary tract symptoms Status: Acute Assessment and Plan: * Stable. No evidence of urine retention. * Continue home tamsulosin * Bladder scan PRN (6) Hypertension: Code(s): I10 - Essential (primary) hypertension Status: Acute Assessment and Plan: * BP reviewed on 06/06 * BP well controlled. * Continue home losartan * Hold HCTZ due to hyponatremia * Trend BP * Adjust therapy as indicated Subjective Date/time seen: 06/06/21 15:15 Interval history: 60yo male with HTN, DJD and BPH here for elective right TKA. Assuming care. Chart reviewed. Pain is down to 5/10. No nausea or vomiting. No chest pain or shortness of breath. He has been walking with therapy out in the hallway. Exam Narrative: AF 98.8 140/72 92 14 97% ra Gen - NARD Chest - CTA bilaterally, nml RR CV - RRR S1/S2 Abd - Soft, NT/ND, Positive BS Ext - right knee edema with mild bruising medially. 2+ DP bilaterally. Neuro - Alert and oriented. Nonfocal exam. Psych - Nml mood and affect Skin - Warm and dry. Objective Data Vital Signs Vital Signs: Vital Signs - 24 hr 06/05/21 16:15 06/05/21 20:00 06/05/21 21:08 Temperature 97.4 F L Pulse Rate 92 92 Respiratory Rate 16 16 Blood Pressure 145/73 H Pulse Oximetry 95 96 96 06/05/21 22:00 06/06/21 02:00 06/06/21 06:00 Temperature 97.1 F L 98.4 F 98.2 F Pulse Rate 81 88 83 Respiratory Rate 18 18 18 Blood Pressure 158/80 H 153/73 H 148/79 H Pulse Oximetry 97 96 96 06/06/21 10:53 06/06/21 13:33 Temperature 98.9 F 98.8 F Pulse Rate 84 92 Respiratory Rate 16 14 Blood Pressure 143/79 H 140/72 Pulse Oximetry 97 97 Intake/Output Intake/Output: Intake & Output 06/03/21 06/04/21 06/05/21 06/06/21 23:59 23:59 23:59 23:59 In
--- NOTE | 2021-06-06 15:15 | PM.IMPN ---
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 Completed antibiotic: cefazolin x3 bags Continue current pain control regiment. Continue PT/OT DVT prophylaxis per ortho (2) Hyponatremia: Code(s): E87.1 - Hypo-osmolality and hyponatremia Status: Acute Assessment and Plan: NA 122 this morning. [place] 72 and UCr 52 with FENa 0.8%. TSH and Cortisol level okay. Suspect SIADH related to pain IV fluids stopped. HCTZ held Add NaCl tabs and start fluid restriction. Q6H Na levels. (3) Hypokalemia: Code(s): E87.6 - Hypokalemia Status: Acute Assessment and Plan: K+ was 3.2 and was replaced. Potassium normal now Follow (4) Hypomagnesemia: Code(s): E83.42 - Hypomagnesemia Status: Acute Assessment and Plan: Mg 1.6 and was replaced Mag level normal now. Follow (5) BPH (benign prostatic hyperplasia): Code(s): N40.0 - Benign prostatic hyperplasia without lower urinary tract symptoms Status: Acute Assessment and Plan: Stable. No evidence of urine retention. Continue home tamsulosin Bladder scan PRN (6) Hypertension: Code(s): I10 - Essential (primary) hypertension Status: Acute Assessment and Plan: BP reviewed on 06/06 BP well controlled. Continue home losartan Hold HCTZ due to hyponatremia Trend BP Adjust therapy as indicated Subjective Date/time seen: 06/06/21 15:15 Interval history: 60yo male with HTN, DJD and BPH here for elective right TKA. Assuming care. Chart reviewed. Pain is down to 5/10. No nausea or vomiting. No chest pain or shortness of breath. He has been walking with therapy out in the hallway. Exam Narrative: AF 98.8 140/72 92 14 97% ra Gen - NARD Chest - CTA bilaterally, nml RR CV - RRR S1/S2 Abd - Soft, NT/ND, Positive BS Ext - right knee edema with mild bruising medially. 2+ DP bilaterally. Neuro - Alert and oriented. Nonfocal exam. Psych - Nml mood and affect Skin - Warm and dry. Objective Data Vital Signs Vital Signs: Vital Signs - 24 hr 06/05/21 16:15 06/05/21 20:00 06/05/21 21:08 Temperature 97.4 F L Pulse Rate 92 92 Respiratory Rate 16 16 Blood Pressure 145/73 H Pulse Oximetry 95 96 96 06/05/21 22:00 06/06/21 02:00 06/06/21 06:00 Temperature 97.1 F L 98.4 F 98.2 F Pulse Rate 81 88 83 Respiratory Rate 18 18 18 Blood Pressure 158/80 H 153/73 H 148/79 H Pulse Oximetry 97 96 96 06/06/21 10:53 06/06/21 13:33 Temperature 98.9 F 98.8 F Pulse Rate 84 92 Respiratory Rate 16 14 Blood Pressure 143/79 H 140/72 Pulse Oximetry 97 97 Intake/Output Intake/Output: Intake & Output 06/03/21 06/04/21 06/05/21 06/06/21 23:59 23:59 23:59 23:59 Intake Total 1610 2160 4280 Output Total 1050 1250 1000 Balance 264 018 0929 Meds/Results Medications: Active Medications Generic Name Dose Route Start Last Admin Trade Name Freq PRN Reason Stop Dose Admin Acetaminophen 650 mg 06/04/21 13:09 Acetaminophen 325 Mg Tablet PO PRN PRN Pain 1-3 Albuterol 1 puff 06/04/21 13:34 Albuterol Sulfate (*Sp) Aerosol 1 Puff INHALATION PRN PRN Shortness Of Breath Diazepam 5 mg 06/04/21 13:09 06/05/21 08:36 Diazepam (*Crx) 5 Mg Tablet PO 5 mg Q8H PRN Administration Spasms Diphenhydramine HCl 25 mg 06/04/21 13:09 Diphenhydramine Hcl Inj 50 Mg/Ml Vial IV PUSH Q6H PRN Itching Hydroxyzine Pamoate 50 mg 06/04/21 21:07 06/04/21 21:40 Hydroxyzine Pamoate 25 Mg Capsule PO 50 mg Q4H PRN Ad
[2021-06-06] MEDS: RIVAROXABAN 10 MG TABLET PO (16:54)
[2021-06-06 18:11] LABS: Sodium 123 mmol/L (137-145)
[2021-06-07 00:42] LABS: Sodium 125 mmol/L (137-145)
[2021-06-07] MEDS: oxyCODONE/ACETAMINOPHEN (*CRX) 5-325 MG TABLET 2 TABLET PO ×2 (02:46→10:12)
[2021-06-07 03:00] VITALS: BP 159/83; PULSE 93; RESP 18; TEMP 37; O2SAT 96
[2021-06-07 05:50] LABS: Basophils Percent Auto 0.2 % (0.2-1.2); Eosinophils Percent Auto 0.3 % (0-4.4); Hematocrit 28.2 % (42.0-52.0); Hemoglobin 9.4 g/dL (14.0-18.0); Immature Granulocyte Percent A 0.8 % (0-0.5); Lymphocytes Absolute Auto 1.46 K/mm3 (0.9-3.2); Lymphocytes Percent Auto 11.9 % (18.3-44.2); Mean Corpuscular HGB Conc 33.3 g/dl (32-36); Mean Corpuscular Hemoglobin 20.4 pg (26-34); Mean Corpuscular Volume 61.3 fl (80-100); Mean Platelet Volume 9.3 fl (7.4-10.4); Monocytes Absolute Auto 1.2 K/mm3 (0.1-0.6); Monocytes Percent Auto 9.6 % (2.6-8.5); Neutrophils Absolute Auto 9.4 K/mm3 (1.3-6.7); Neutrophils Percent Auto 77.2 % (45.5-73.1); Platelet Count Result 168 k/mm3 (150-375); White Blood Count 12.2 K/mm3 (4.5-10.0)
[2021-06-07 06:01] LABS: Anion Gap 6 mmol/L (8-16); Blood Urea Nitrogen 9 mg/dL (9-20); Calcium 8.1 mg/dL (8.4-10.2); Carbon Dioxide 24 mmol/L (22-30); Chloride 95 mmol/L (98-107); Estimated CRCL calculation 113 ml/min; Estimated Glomerular Filt Rate > 60; Glucose 115 mg/dL (65-110); Magnesium 2.2 mg/dL (1.6-2.3); Potassium 3.8 mmol/L (3.4-5.0); Sodium 125 mmol/L (137-145)
[2021-06-07 06:55] VITALS: BP 144/80; PULSE 91; RESP 18; TEMP 36.1; O2SAT 97
[2021-06-07] MEDS: TAMSULOSIN HCL 0.4 MG CAPSULE PO (08:20)
[2021-06-07] MEDS: SODIUM CHLORIDE 500 MG TABLET PO ×2 (08:20→16:02)
[2021-06-07] MEDS: SENNA/DOCUSATE SODIUM TABLET 2 TAB PO ×2 (08:20→16:02)
[2021-06-07] MEDS: LOSARTAN POTASSIUM 100 MG TABLET PO (08:20)
[2021-06-07] MEDS: AZELASTINE HCL NASAL 0.1% 137 MCG/SPR 30 ML BTL 1 SPRAY NASAL (08:20)
--- NOTE | 2021-06-07 11:58 | PM.IMPN ---
Progress Note: A&P Assessment and Plan (1) Hyponatremia: Code(s): E87.1 - Hypo-osmolality and hyponatremia Status: Acute Assessment and Plan: Likely due to thiazide plus perioperative SIADH Preop Na 137, postop olamide 122 06/07 125 in AM, 130 in afternoon; discontinued po NaCl and continued fluid restriction f/u lab likely home 06/08 (2) S/P total knee arthroplasty: Qualifiers: Laterality: right Qualified Code(s): Z96.651 - Presence of right artificial knee joint Code(s): Z96.659 - Presence of unspecified artificial knee joint Status: Acute Assessment and Plan: Doing well postoperatively (3) Hypokalemia: Code(s): E87.6 - Hypokalemia Status: Acute Assessment and Plan: Resolved (4) Hypomagnesemia: Code(s): E83.42 - Hypomagnesemia Status: Acute Assessment and Plan: Resolved (5) BPH (benign prostatic hyperplasia): Qualifiers: Lower urinary tract symptom presence: symptoms present Lower urinary tract symptom detail: unspecified Qualified Code(s): N40.1 - Benign prostatic hyperplasia with lower urinary tract symptoms Code(s): N40.0 - Benign prostatic hyperplasia without lower urinary tract symptoms Status: Acute Assessment and Plan: continue tamsulosin (6) Hypertension: Qualifiers: Hypertension type: unspecified Qualified Code(s): I10 - Essential (primary) hypertension Code(s): I10 - Essential (primary) hypertension Status: Acute Assessment and Plan: BP reviewed and adequately controlled 06/07 Subjective Date/time seen: 06/07/21 11:58 Interval history: 06/07: only c/o is incisional pain. Tolerating diet. PT/OT painful, but participating. No cp or sob. Bowels moved x 2 06/07. Feels better overall. Review of Systems Review of Systems: All systems reviewed & are unremarkable except as noted in HPI and below Exam Narrative: HEENT: PERRL, sclerae nonicteric, pharyngeal mucosa pink and intact NECK: No JVD CHEST: Clear to auscultation. Normal effort. HEART: NL S1/S2, regular, no murmur ABDOMEN: BS+, soft, nontender, no mass, no bruits EXTREMITIES: No cyanosis, edema, or clubbing NEUROLOGIC: CN intact and symmetric to inspection. MUSCULOSKELETAL: Tone and strength symmetric distally, RIGHT KNEE HEAVILY BANDAGED. PSYCH: Alert. Oriented to person, place, and time. Objective Data Vital Signs Vital Signs: Vital Signs - 24 hr 06/06/21 13:33 06/06/21 17:53 06/06/21 19:11 Temperature 98.8 F 100.0 F H 99.4 F Pulse Rate 92 87 Respiratory Rate 14 16 Blood Pressure 140/72 150/74 H Pulse Oximetry 97 95 06/06/21 22:17 06/06/21 23:00 06/07/21 03:00 Temperature 98.5 F 98.6 F Pulse Rate 86 93 Respiratory Rate 21 H 18 Blood Pressure 152/7 H 159/83 H Pulse Oximetry 99 100 96 06/07/21 06:55 Temperature 97.0 F L Pulse Rate 91 Respiratory Rate 18 Blood Pressure 144/80 H Pulse Oximetry 97 Intake/Output Intake/Output: Intake & Output 06/04/21 06/05/21 06/06/21 06/07/21 23:59 23:59 23:59 23:59 Intake Total 1610 2160 4580 700 Output Total 1050 1250 1575 1600 Balance 496 711 7915 -900 Meds/Results Medications: Active Medications Generic Name Dose Route Start Last Admin Trade Name Freq PRN Reason Stop Dose Admin Acetaminophen 650 mg 06/04/21 13:09 Acetaminophen 325 Mg Tablet PO PRN PRN Pain 1-3 Albuterol 1 puff 06/04/21 13:34 Albuterol Sulfate (*Sp) Aerosol 1 Puff INHALATION PRN PRN Shortness Of Breath Azelastine HCl 1 spray 06/06/21 18:10 06/07/21 08:20 Azelastine Hcl Nasal 0.1% 137 Mcg/Spr 30 Ml Btl NASAL 1 spray Q12HR PRN Administration Allergies Diazepam 5 mg 06/04/21 13:09 06/05/21 08:36 Diazepam (*Crx) 5 Mg Tablet PO 5 mg Q8H PRN Administration Spasms Diphenhydramine HCl 25 mg 06/04/21 13:09 Diphenhydramine Hcl Inj 50 Mg/Ml Via
--- NOTE | 2021-06-07 12:15 | PM.PNORT ---
Progress Note: A&P Assessment and Plan (1) S/P total knee arthroplasty: Qualifiers: Laterality: right Qualified Code(s): Z96.651 - Presence of right artificial knee joint Code(s): Z96.659 - Presence of unspecified artificial knee joint Status: Acute Assessment and Plan: POD #3: Right TKA Continue PT/OT. WBAT. Walker. FALL RISK. Pain control. Ice. DVT prophylaxis. SCDs. Incentive spirometry. Monitor dressing. Change before discharge. Dispo: Home with home health pending Na, possibly tomorrow. (2) Hyponatremia: Code(s): E87.1 - Hypo-osmolality and hyponatremia Status: Acute Assessment and Plan: Continued hyponatremia. Medicine team following. Fluid restrictions and monitor labs Q6H. Appreciate recommendations. HCTZ held again today. (3) Hypokalemia: Code(s): E87.6 - Hypokalemia Status: Acute Assessment and Plan: Potassium repleted on 06/05 with 40mEq. K now 3.6. Appreciate medicine team input. (4) Hypomagnesemia: Code(s): E83.42 - Hypomagnesemia Status: Acute Assessment and Plan: Magnesium repleted on 06/05. Magnesium now 2.1. (5) BPH (benign prostatic hyperplasia): Code(s): N40.0 - Benign prostatic hyperplasia without lower urinary tract symptoms Status: Acute Subjective Subjective Date/Time Seen: 06/07/21 12:15 Post Op day: 3 Principal diagnosis: RT TKA Interval history: Pain better. Following sodium Review of Systems Constitutional: Constitutional: Denies fatigue, Denies fever(s) and Denies weakness Cardiovascular: Cardiovascular: Denies chest pain, Denies lightheadedness and Denies palpitations Respiratory: Respiratory: Denies cough, Denies dyspnea and Denies wheezing Gastrointestinal: Gastrointestinal: Denies abdominal pain, Denies nausea and Denies vomiting Genitourinary: Genitourinary: Denies dysuria Musculoskeletal: Musculoskeletal: Reports as per HPI Exam Const: General: comfortable and no acute distress Resp: Effort & Inspection: normal respiratory effort Cardio: Rate: regular rate Rhythm: regular rhythm GI: GI Palp: Yes Soft to palpation, No Tenderness to palpation present (GI) and No Guarding due to palpation present (GI) Skin: Wounds: wounds noted Other: Incision c/d/i. No surrounding redness/warmth. No hematoma. Mild ecchymosis. No wound dehiscence Neuro: Cognition (Neuro): normal cognition Other: NV intact. Moves toes. Sensation intact to light touch. +ankle dorsiflexion/plantarflexion. Extrem: Right lower extremity: normal to inspection and knee Details: tenderness (diffuse, mild ), swelling (diffuse, mild ), abnormal ROM (limited due to recent surgical intervention ) and ecchymosis (mild medial lower leg ) Psych: Mental Status: mental status grossly normal Objective Data Vital Signs Vital Signs: Vital Signs - 24 hr 06/06/21 13:33 06/06/21 17:53 06/06/21 19:11 Temperature 98.8 F 100.0 F H 99.4 F Pulse Rate 92 87 Respiratory Rate 14 16 Blood Pressure 140/72 150/74 H Pulse Oximetry 97 95 06/06/21 22:17 06/06/21 23:00 06/07/21 03:00 Temperature 98.5 F 98.6 F Pulse Rate 86 93 Respiratory Rate 21 H 18 Blood Pressure 152/7 H 159/83 H Pulse Oximetry 99 100 96 06/07/21 06:55 Temperature 97.0 F L Pulse Rate 91 Respiratory Rate 18 Blood Pressure 144/80 H Pulse Oximetry 97 Intake/Output Intake/Output: Intake & Output 06/04/21 06/05/21 06/06/21 06/07/21 23:59 23:59 23:59 23:59 Intake Total 1610 2160 4580 700 Output Total 1050 1250 1575 1600 Balance 336 052 3715 -900 Meds/Results Medications: Active Medications Generic Name Dose Route Start Last Admin Trade Name Freq PRN Reason Stop Dose Admin Acetaminophen 650 mg 06/04/21 13:09 Acetaminophen 325 Mg Tablet PO PRN PRN Pain 1-3 Albuterol 1 puff 06/04/21 13:34 Albuterol Sulfate (*Sp) Aerosol 1 Puff INHALATION PRN PRN Shortness Of Breath Rishabh
[2021-06-07 14:10] VITALS: BP 145/73; PULSE 92; RESP 16; TEMP 36.9; O2SAT 95
[2021-06-07 14:30] LABS: Sodium 130 mmol/L (137-145)
[2021-06-07] MEDS: oxyCODONE/ACETAMINOPHEN (*CRX) 5-325 MG TABLET 1 TABLET PO ×2 (16:02→20:05)
[2021-06-07] MEDS: RIVAROXABAN 10 MG TABLET PO (16:02)
[2021-06-07 21:33] VITALS: BP 132/73; PULSE 95; RESP 14; TEMP 37.5; O2SAT 99
[2021-06-07] MEDS: ACETAMINOPHEN 325 MG TABLET 650 MG PO (22:49)
[2021-06-08] MEDS: oxyCODONE/ACETAMINOPHEN (*CRX) 5-325 MG TABLET 1 TABLET PO ×4 (00:14→14:19)
[2021-06-08 06:00] VITALS: BP 145/78; PULSE 93; RESP 16; TEMP 37.2; O2SAT 98
[2021-06-08 09:02] LABS: Anion Gap 4 mmol/L (8-16); Blood Urea Nitrogen 11 mg/dL (9-20); Calcium 8.3 mg/dL (8.4-10.2); Carbon Dioxide 29 mmol/L (22-30); Chloride 97 mmol/L (98-107); Estimated CRCL calculation 99 ml/min; Estimated Glomerular Filt Rate > 60; Glucose 233 mg/dL (65-110); Potassium 3.4 mmol/L (3.4-5.0); Sodium 130 mmol/L (137-145)
[2021-06-08] MEDS: LOSARTAN POTASSIUM 100 MG TABLET PO (09:24)
[2021-06-08] MEDS: TAMSULOSIN HCL 0.4 MG CAPSULE PO (09:24)
--- NOTE | 2021-06-08 10:34 | PM.IMPN ---
Progress Note: A&P Assessment and Plan (1) Hyponatremia: Code(s): E87.1 - Hypo-osmolality and hyponatremia Status: Acute Assessment and Plan: Likely due to thiazide plus perioperative SIADH Preop Na 137, postop olamide 122 06/07 125 in AM, 130 in afternoon; discontinued po NaCl and continued fluid restriction 06/08: Na stable at 130, so d/w patient fluid restriction 1500 ml/day until f/u lab and office appt. (2) S/P total knee arthroplasty: Qualifiers: Laterality: right Qualified Code(s): Z96.651 - Presence of right artificial knee joint Code(s): Z96.659 - Presence of unspecified artificial knee joint Status: Acute Assessment and Plan: Doing well postoperatively (3) Hypokalemia: Code(s): E87.6 - Hypokalemia Status: Acute Assessment and Plan: Resolved (4) Hypomagnesemia: Code(s): E83.42 - Hypomagnesemia Status: Acute Assessment and Plan: Resolved (5) BPH (benign prostatic hyperplasia): Qualifiers: Lower urinary tract symptom presence: symptoms present Lower urinary tract symptom detail: unspecified Qualified Code(s): N40.1 - Benign prostatic hyperplasia with lower urinary tract symptoms Code(s): N40.0 - Benign prostatic hyperplasia without lower urinary tract symptoms Status: Acute Assessment and Plan: continue tamsulosin (6) Hypertension: Qualifiers: Hypertension type: unspecified Qualified Code(s): I10 - Essential (primary) hypertension Code(s): I10 - Essential (primary) hypertension Status: Acute Assessment and Plan: BP reviewed and borderline control 06/08 D/w pt to avoid thiazides and d/w PCP possible addition of amlodipine if needed to reach bp goal (7) Acute hyperglycemia: Code(s): R73.9 - Hyperglycemia, unspecified Status: Acute Assessment and Plan: FBS 129 06/06, 115 06/07 06/08 PP BS 233 Hemoglobin A1c ordered with outpatient labs Subjective Date/time seen: 06/08/21 10:34 Interval history: 06/08: only c/o is incisional pain, controlled with Percocet 5/325. Tolerating diet. PT/OT painful, but participating. No cp or sob. Bowels moved x 2 06/07. Feels better overall. Wants to go home. Exam Narrative: HEENT: PERRL, sclerae nonicteric, pharyngeal mucosa pink and intact NECK: No JVD CHEST: Clear to auscultation. Normal effort. HEART: NL S1/S2, regular, no murmur ABDOMEN: BS+, soft, nontender, no mass, no bruits EXTREMITIES: No cyanosis, edema, or clubbing NEUROLOGIC: CN intact and symmetric to inspection. MUSCULOSKELETAL: Tone and strength symmetric distally, RIGHT KNEE HEAVILY BANDAGED. PSYCH: Alert. Oriented to person, place, and time. Objective Data Vital Signs Vital Signs: Vital Signs - 24 hr 06/07/21 14:10 06/07/21 21:33 06/08/21 06:00 Temperature 98.4 F 99.5 F 99.0 F Pulse Rate 92 95 93 Respiratory Rate 16 14 16 Blood Pressure 145/73 H 132/73 145/78 H Pulse Oximetry 95 99 98 Intake/Output Intake/Output: Intake & Output 06/05/21 06/06/21 06/07/21 06/08/21 23:59 23:59 23:59 23:59 Intake Total 2160 4580 820 240 Output Total 1250 1575 2200 100 Balance 910 3005 -1380 140 Meds/Results Medications: Active Medications Generic Name Dose Route Start Last Admin Trade Name Joseq PRN Reason Stop Dose Admin Acetaminophen 650 mg 06/04/21 13:09 06/07/21 22:49 Acetaminophen 325 Mg Tablet PO 650 mg PRN PRN Administration Pain 1-3 Albuterol 1 puff 06/04/21 13:34 Albuterol Sulfate (*Sp) Aerosol 1 Puff INHALATION PRN PRN Shortness Of Breath Azelastine HCl 1 spray 06/06/21 18:10 06/07/21 08:20 Azelastine Hcl Nasal 0.1% 137 Mcg/Spr 30 Ml Btl NASAL 1 spray Q12HR PRN Administration Allergies Diazepam 5 mg 06/04/21 13:09 06/05/21 08:36 Diazepam (*Crx) 5 Mg Tablet PO 5 mg Q8H PRN Administration Spasms Diphenhydramine HCl
[2021-06-08] MEDS: RIVAROXABAN 10 MG TABLET PO (14:25)
--- NOTE | 2021-06-10 09:37 | PM.DS ---
DS: Admitting Diagnosis Discharge Date 06/08/21 Admitting Diagnosis Right knee DJD DS: Discharge Diagnosis Discharge Diagnosis (1) S/P total knee arthroplasty: Qualifiers: Laterality: right Qualified Code(s): Z96.651 - Presence of right artificial knee joint Code(s): Z96.659 - Presence of unspecified artificial knee joint Status: Acute Assessment and Plan: POD #4: Right TKA Continue PT/OT. WBAT. Walker. FALL RISK. Pain control. Ice. DVT prophylaxis. SCDs. Incentive spirometry. Monitor dressing. Change before discharge. Dispo: Home with home health (2) Hypokalemia: Code(s): E87.6 - Hypokalemia Status: Acute Assessment and Plan: Resolved (3) Hypomagnesemia: Code(s): E83.42 - Hypomagnesemia Status: Acute Assessment and Plan: Resolved (4) BPH (benign prostatic hyperplasia): Qualifiers: Lower urinary tract symptom presence: symptoms present Lower urinary tract symptom detail: unspecified Qualified Code(s): N40.1 - Benign prostatic hyperplasia with lower urinary tract symptoms Code(s): N40.0 - Benign prostatic hyperplasia without lower urinary tract symptoms Status: Acute Assessment and Plan: continue tamsulosin (5) Hypertension: Qualifiers: Hypertension type: unspecified Qualified Code(s): I10 - Essential (primary) hypertension Code(s): I10 - Essential (primary) hypertension Status: Acute Assessment and Plan: BP reviewed and borderline control 06/08 D/w pt to avoid thiazides and d/w PCP possible addition of amlodipine if needed to reach bp goal (6) Hyponatremia: Code(s): E87.1 - Hypo-osmolality and hyponatremia Status: Acute Assessment and Plan: Likely due to thiazide plus perioperative SIADH Preop Na 137, postop olamide 122 16 125 in AM, 130 in afternoon; discontinued po NaCl and continued fluid restriction 06/08: Na stable at 130, so d/w patient fluid restriction 1500 ml/day until f/u lab and office appt. (7) Acute hyperglycemia: Code(s): R73.9 - Hyperglycemia, unspecified Status: Acute Assessment and Plan: FBS 129 4/15, 115 4/16 4 PP BS 233 Hemoglobin A1c ordered with outpatient labs DS: Summary Hospital Course Reason for hospitalization: Right total knee arthroplasty Hospital Course: 60-year-old male admitted status post right total knee arthroplasty. Patient had difficulties with hyponatremia, hypomagnesium and hypokalemia postoperatively. Hospitalist service consulted to assist with medical management. 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 On postop day 4, the patient's magnesium and potassium were stable s/p repletion. His sodium was stable at 130. Patient was cleared from orthopedic standpoint and pain well controlled at this time. He was also cleared by Physical and Occupational therapy today discharge home with home health. The patient will be discharged home with a fluid restriction of 1500 mL per day with follow-up labs and primary care provider evaluation. Status at Discharge Functional status at discharge: uses cane/walker Overall status at discharge: patient is progressing back to baseline Time Spent with Patient Time attestation: Total time spent providing and/or coordinating discharge services: Time spent: Less than 30 minutes Exam Const: General: comfortable and no acute distress Resp: Effort & Inspection: normal respiratory effort Cardio: Rate: regular rate Rhythm: regular rhythm GI: GI Palp: Yes Soft to palpation, No Tenderness to palpation present (GI) and No Guarding due to palpation present (GI) Skin: Wounds: wounds noted Other: Incision c/d/i. No surrounding redness/warmth. No hematoma. Mild ecchymosis. No wound dehiscence Neuro: Cognition (Neuro): normal cognition Other: NV intact. Moves toes. Sensation intact to light touch. +ankle dorsiflexion/plantarflex
== END 2021-06-08 14:30 | disposition home health service (06) ==
LOC: ANHSURGERY 14:35 → ANH2MED 14:35
PROVIDERS: Internal Medicine; Nurse Practitioner Family; Admitting Provider Orthopaedic Surgery; PCP Internal Medicine; Visit Provider Orthopaedic Surgery
PROC: (CPT 27447; principal; 2021-06-04 10:30)
DX: M17.11 Unilateral primary osteoarthritis, right knee (principal); E87.1 Hypo-osmolality and hyponatremia; E87.6 Hypokalemia; E83.42 Hypomagnesemia; R73.9 Hyperglycemia, unspecified; G89.18 Other acute postprocedural pain; R11.0 Nausea; I10 Essential (primary) hypertension; N40.0 Benign prostatic hyperplasia without lower urinary tract symptoms; Z79.51 Long term (current) use of inhaled steroids
CPT/HCPCS: 27447; 64447; 36415; 73560; 80048; 80053; 82533; 82570; 83735; 84295; 84300; 84443; 85025; 97110; 97116; 97161; 97165; 97530; 97535; A9270; C1713; C1776; G0378; J0690; J1170; J2250; J2270; J2405; J2704; J3010; J3475; J7030; J7120

== ENCOUNTER 2021-06-10 12:04 | Outpatient (NON) | payer BC, SELFPAY ==
[2021-06-10 12:24] LABS: Anion Gap 5 mmol/L (8-16); Blood Urea Nitrogen 11 mg/dL (9-20); Calcium 8.5 mg/dL (8.4-10.2); Carbon Dioxide 28 mmol/L (22-30); Chloride 100 mmol/L (98-107); Estimated Glomerular Filt Rate > 60; Glucose 157 mg/dL (65-110); Potassium 3.6 mmol/L (3.4-5.0); Sodium 133 mmol/L (137-145)
[2021-06-10 12:25] LABS: Hemoglobin A1C 5.4 % (<5.7)
== END 2021-06-10 12:05 | disposition home or self-care (01) ==
LOC: HOME HLTH 12:06
PROVIDERS: Visit Provider Orthopaedic Surgery
DX: E87.1 Hypo-osmolality and hyponatremia (principal); R73.9 Hyperglycemia, unspecified; Z96.651 Presence of right artificial knee joint
CPT/HCPCS: 80048; 83036

== ENCOUNTER 2021-06-16 12:47 | Outpatient (NON) | payer BC, SELFPAY ==
[2021-06-16 13:09] LABS: Sodium 134 mmol/L (137-145)
== END 2021-06-16 12:48 | disposition home or self-care (01) ==
LOC: HOME HLTH 12:51
DX: E87.1 Hypo-osmolality and hyponatremia (principal)
CPT/HCPCS: 84295

== ENCOUNTER 2022-01-02 10:13 | Outpatient (CLI) | payer BC, SELFPAY ==
[2022-01-02 11:42] LABS: Basophils Absolute Auto 0.1 K/mm3 (0.0-0.1); Basophils Percent Auto 0.8 % (0.2-1.2); Eosinophils Absolute Auto 0.7 K/mm3 (0-0.3); Hematocrit 41.8 % (42.0-52.0); Immature Granulocyte Absolute 0.04 K/mm3 (0.00-0.031); Immature Granulocyte Percent A 0.6 % (0-0.5); Lymphocytes Percent Auto 23.4 % (18.3-44.2); Mean Corpuscular HGB Conc 31.1 g/dl (32-36); Mean Corpuscular Hemoglobin 20.4 pg (26-34); Mean Corpuscular Volume 65.7 fl (80-100); Monocytes Absolute Auto 0.5 K/mm3 (0.1-0.6); Monocytes Percent Auto 6.3 % (2.6-8.5); Neutrophils Absolute Auto 4.4 K/mm3 (1.3-6.7); Neutrophils Percent Auto 59.9 % (45.5-73.1); Platelet Count Result 229 k/mm3 (150-375); Red Blood Count 6.36 M/mm3 (4.6-6.20); Red Cell Distribution Width 17.1 % (11.5-14.5); White Blood Count 7.3 K/mm3 (4.5-10.0)
[2022-01-02 11:42] LABS: Appearance Urine Clear (Clear); Bilirubin Urine Negative (Negative); Blood Urine Negative (Negative); Color Urine Yellow (Yellow); Glucose Urine UA Negative (Negative); Ketones Urine Negative (Negative); Leukocyte Esterase Ur Trace LEU/UL (Negative); Nitrate Urine Negative (Negative); Protein Urine Negative (Negative); Urobilinogen Urine 0.2 mg/dL (<2.0); pH Urine 6.5 (5.0-9.0)
[2022-01-02 11:45] LABS: Albumin Level 4.5 g/dL (3.5-5.1); Anion Gap 8 mmol/L (8-16); Blood Urea Nitrogen 14 mg/dL (9-20); Calcium 9.4 mg/dL (8.4-10.2); Carbon Dioxide 29 mmol/L (22-30); Chloride 101 mmol/L (98-107); Estimated Glomerular Filt Rate > 60; Glucose 105 mg/dL (65-110); Potassium 4.4 mmol/L (3.4-5.0); Sodium 138 mmol/L (137-145)
[2022-01-02 11:45] LABS: Urine Cotinine NEGATIVE
[2022-01-02 11:47] LABS: Hemoglobin A1C 5.5 % (<5.7)
[2022-01-02 11:53] LABS: Mucus Urine Rare /lpf; RBC Urine 0-2 /hpf (0-2)
[2022-01-02 12:05] LABS: Partial Thromboplastin Time 29.2 SECONDS (22.3-36.8)
[2022-01-02 12:12] LABS: Add Urine Microscopic? YES
[2022-01-02 12:16] LABS: INR 1.2; Prothrombin Time 14.5 Seconds (11.1-14.7)
== END 2022-01-02 10:14 | disposition home or self-care (01) ==
PROVIDERS: Visit Provider Orthopaedic Surgery
DX: Z01.818 Encounter for other preprocedural examination (principal); M17.12 Unilateral primary osteoarthritis, left knee
CPT/HCPCS: 80048; 80307; 81001; 82040; 83036; 85025; 85610; 85730; 87081

== ENCOUNTER 2022-01-21 01:51 | Day surgery (SDC) | payer BC, SELFPAY ==
[2022-01-02 10:40] VITALS: PULSE 79; RESP 16; TEMP 36.5; O2SAT 99; BMI 25.7
--- NOTE | 2022-01-02 10:51 | PC.NURSE ---
Report to the Outpatient Waiting Room, entrance under the green pavilion located off [facility], at time __9:00AM on date __01/21/22 . Planned Procedure Time: _11:00AM . Time changes happen often and if your time is changed the preop area will call you the afternoon before. - You and your visitor will be asked to self-screen and do not enter if you have any COVID symptoms. - We encourage only one visitor and NO visitors under age 16 are allowed at this time. Your visitor will receive communication by the phone number that is given day of service. - The patient visitor is requested to social distance or may leave the building when not with patient due to restrictions. - A mask is required within the hospital. Patients may have clear liquids (water, carbonated beverages, clear teas, apple juice) until 3 hours prior to surgery with a maximum of 20 ounces. - No food from midnight until time of surgery Take the following medications with a SIP of water the morning of surgery: ___BREO ELLIPTA INHALER, ALBUTEROL INHALER NEEDED_ Medications to discontinue per physician ____HOLD ALL VITAMINS/SUPPLEMENTS 3 DAYS PRE-OP Date to take last dose____01/17/22 Please no make-up, nail greenlandic, hairspray, perfume, deodorant, or body powder the day of surgery. No jewelry (including any body piercings) or valuables the day of surgery, leave them at home. Please take a shower or bath the night before, or the morning of, surgery with an antibacterial soap. Wear comfortable, loose fitting clothing. Children are encouraged to wear pajamas. - Jewelry must be removed prior to entering the operating room. Rings and piercings that are not removed may be cut off. - The hospital will not accept responsibility for valuables. - Please leave all valuables, including medications, at home the day of surgery. If you are going home after surgery, a licensed bobcat driver/labor must drive you home. - NO public transportation without another adult. - We recommend that an adult stay with you for 24 hours following discharge. - We also recommend that you do not drive, make important decision, drink alcoholic beverages, or take any drugs that were not prescribed by your health care provider for at least 24 hours after your discharge time. Follow any additional instructions given to you from your surgeon. If you or anyone in your household have experienced Covid symptoms in the past week, please notify your surgeon or the nurse liaison at the phone number below for possible testing. Telephone instructions given to __PATIENT and asked if any additional questions and then verbalized understanding. Patient advised to call surgeon office or pre surgery nurse liaison [phone] if any additional questions.
--- NOTE | 2022-01-20 14:03 | WPDANESEPPF ---
Anes - Initial Pre Proc Eval Procedure: Operation Date: 01/21/22 11:00 Proposed Procedures p Left Total Knee Arthroplasty - Chucho Carvajal MD Date/Time: 01/20/22 14:03 Surgeon: Chucho Carvajal MD Pre Op Diagnosis: left knee djd Patient Data Age: 61 Gender: M Height: 1.77 m Weight: 80.4 kg Last Vital Signs Temp 36.5 C 01/02/22 10:40 Pulse 79 01/02/22 10:40 Resp 16 01/02/22 10:40 Pulse Ox 99 01/02/22 10:40 O2 Del Method Room Air 01/02/22 10:40 Allergies Allergy/AdvReac Type Severity Reaction Status Date / Time NSAIDS (Non-Steroidal Allergy Difficulty Verified 01/21/22 09:39 Anti-Inflamma Breathing statin AdvReac Unknown Joint/ Uncoded 01/21/22 09:39 MUSCLE PAIN Home Medications Medication Instructions Recorded Confirmed Type wlimqkrmtdus-qhcrvkvt-nlhozz tablet 1 tablet PO DAILY 11/07/19 01/21/22 History tamsulosin 0.4 mg capsule 0.8 mg PO DAILY 11/07/19 01/21/22 History acetaminophen 325 mg capsule 650 mg PO PRN PRN Pain 05/22/21 01/21/22 History (Tylenol) albuterol 90 mcg/actuation aerosol 1 mcg inhalation PRN PRN Shortness 05/22/21 01/21/22 History inhaler Of Breath azelastine 137 mcg (0.1 %) nasal 1 spray intranasal HS 05/22/21 01/21/22 History spray aerosol fluticasone furoate 200 2 ea inhalation PRN PRN Shortness 05/22/21 01/21/22 History mcg-vilanterol 25 mcg/dose Of Breath inhalation powder (Breo Ellipta) diphenhydramine HCl 25 mg capsule 25 mg PO HS PRN Congestion 01/02/22 01/21/22 History (Benadryl) finasteride 5 mg tablet 5 mg PO DAILY 01/02/22 01/21/22 History losartan 50 mg-hydrochlorothiazide 0.5 tablet PO QPM 01/02/22 01/21/22 History 12.5 mg tablet phenylephrine HCl 10 mg tablet 10 mg PO Q4-6H PRN Congestion 01/02/22 01/21/22 History pseudoephedrine HCl 120 mg 120 mg PO HS PRN Congestion 01/02/22 01/21/22 History capsule,extended release vit C 250 mg-vit E 90 mg-zinc 40 1 tablet PO DAILY 01/02/22 01/21/22 History mg-copper 1 ng-yihueb-vzasxy capsule (PreserVision AREDS-2) chlorhexidine gluconate 4 % 1 applic topical ONCE #237 mL 01/13/22 Rx topical liquid (Hibiclens) Patient hx anesthesia problems: none Family hx anesthesia problems: none Results Review: All pre-operative results and documents have been reviewed as part of the pre-operative evaluation. PMFSH Past Medical History Medical History Anemia Asthma Bilateral knee pain Degenerative joint disease of knee Hypertension Kidney stones Knee effusion Left knee DJD Right knee DJD Sinusitis Skin cancer Thalassemia Surgical History Surgical History H/O lithotripsy S/P total knee arthroplasty Family History Family History Other Diabetes mellitus Hypertension Social History Social History Social History: patient's shared will be his surrogate and patient wishes to be a full code at this time. They have 2 kids 26 and 22-year-old with no pets at home. 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
[2022-01-21] VITALS (17 sets, daily range): BP systolic 118–149; BP diastolic 75–95; PULSE 67–91; RESP 12–20; TEMP 36.3–36.9; O2SAT 94–99
--- NOTE | ~2022-01-21 | XR_ITS ---
EXAMINATION: XR knee LT 2V DATE: 01/21/2022 14:19 GREEN CHAINER INDICATION: Left total knee arthroplasty TECHNIQUE: 2 views left knee FINDINGS: There is a left total knee arthroplasty in expected position. Subcutaneous gas with fluid and air in the joint and overlying skin kalyan are consistent with recent surgery. No evidence of pe riprosthetic fracture. IMPRESSION: 1. Recent left total knee arthroplasty. Reviewed, dictated and finalized at location A. N CHAINER
--- NOTE | 2022-01-21 07:13 | WPDHPUPDATE1 ---
History and Physical Update Update Date/Time: 01/21/22 07:13 History and Physical has been reviewed, including an updated exam of the patient. There are NO changes in the patient's condition. Risks, benefits, and alternatives have been discussed and questions answered. Patient agrees to proceed with procedure.
[2022-01-21] MEDS: ACETAMINOPHEN 500 MG TABLET 1000 MG PO (09:46)
[2022-01-21] MEDS: LACTATED RINGERS 1,000 ML 30 ML IV CONT ×2 (09:54→14:00)
--- NOTE | 2022-01-21 10:07 | WPDANESPNB ---
Anes - Peripheral Nerve Block Date/Time: 01/21/22 10:07 I have discussed with the patient/family/POA the placement of a peripheral nerve block for post-operative pain management, including associated risks, benefits, complications, and side effects. Alternative methods of post-operative analgesia were detailed. Questions were solicited and answers provided to the satisfaction of the patient/family/POA. Time-Out: A pre-procedural Time-Out was completed immediately before starting the procedure and confirmed: Patient Identification, Site, Procedure, Patient Position and the Availability of Requisite Equipment. Clinical Indications: Acute post-operative pain management requested by the operative surgeon. Nerve Block Insertion Note Needle: 22 gauge, stimulating, insulated echogenic needle. Procedure start time:: 1120 Procedure end time:: 1124
[2022-01-21] MEDS: TRANEXAMIC ACID 1,000MG/ISO100 1,000 MG/100 ML BAG 200 MG IVPB (10:46)
[2022-01-21] MEDS: ceFAZolin 2 GM/D5W 50 ML 2 GM/50 ML BAG IVPB ×2 (11:26→18:05)
[2022-01-21] MEDS: GENTAMICIN BONE CEMENT REFOBACIN 1 EACH TOPICAL (12:44)
[2022-01-21] MEDS: TRANEXAMIC ACID 1,000 MG/10 ML AMPUL 1000 MG IV PUSH (13:16)
[2022-01-21] MEDS: fentaNYL CITRATE INJ (*CRX) 100 MCG/2 ML VIAL 25 MCG IV PUSH ×3 (14:20→15:10)
--- NOTE | 2022-01-21 14:41 | W.PM.PROC2 ---
Procedure Note - Detailed Date of Procedure 01/21/22 Pre-op Diagnosis left knee djd Post-op Diagnosis Same Procedure Performed L TKA Surgeon Chucho Carvajal MD Anesthesia General Description of Procedure THE LEFT KNEE WAS PREPPED AND DRAPED IN THE STERILE FASHION. A MIDLINE SKIN INCISION WAS MADE. A MEDIAL PARAPATELLAR ARTHROTOMY WAS MADE. THE PATELLA WAS EVERTED. THERE WAS TRICOMPARTMENT DJD. THERE WAS MINIMAL PATELLA DJD. AN INTRAMEDULLARY RAMIRO WAS PLACED IN THE FEMUR. A DISTAL FEMORAL CUT WAS MADE IN 5 DEGREES OF VALGUS REMOVING APPROXIMATELY 11 MM OF BONE FROM THE DISTAL FEMUR. THE FEMUR WAS SIZED TO 65. A 65 FEMORAL CUTTING BLOCK WAS PLACED IN 3 DEGREES OF EXTERNAL ROTATION AND IN ALIGNMENT WITH ERAN'S LINE AND THE TRANSEPICONDYLAR AXIS. ANTERIOR POSTERIOR AND CHAMFER CUTS WERE MADE. THE CUTS WERE EXCELLENT. NEXT AN INTRAMEDULLARY CUTTING GUIDE WAS PLACED IN THE TIBIA. A TRANS TIBIAL CUT WAS MADE ALONG THE LONG AXIS OF THE TIBIA. APPROXIMATELY 10 MM OF BONE WAS REMOVED FROM THE HIGH SIDE OF THE TIBIA. THE TIBIA WAS THEN PLANED TO A SMOOTH SURFACE. POSTERIOR FEMORAL OSTEOPHYTES WERE REMOVED FROM THE FEMORAL CONDYLES. A 71 TIBIAL TRIAL WAS PLACED IN ALIGNMENT WITH THE 1/3 MEDIAL ASPECT OF THE TIBIAL TUBERCLE. THEN A 65 FEMORAL TRIAL COMPONENT WAS PLACED. BOTH HAD EXCELLENT FITS. EVENTUALLY AN 11 MM CR POLYETHYLENE TRIAL COMPONENT WAS PLACED. THE KNEE WAS TAKEN THROUGH A RANGE OF MOTION. THE KNEE CAME OUT TO FULL EXTENSION. THERE WAS NO ABNORMAL TILT TO THE PATELLA. THERE WAS GOOD A/P AND VARUS/VALGUS STABILITY. THERE WAS NO EXCESSIVE ROLL BACK WITH FLEXION. THE TRIAL COMPONENTS WERE REMOVED. THEN A 65 FEMORAL COMPONENT AND 71 TIBIAL COMPONENT WITH AN 11 CR POLYETHYLENE COMPONENT WERE CEMENTED INTO PLACE. ONCE THE CEMENT WAS HARD THE KNEE WAS TAKEN THROUGH A ROM AGAIN AND FOUND TO BE STABLE WITH NO PATELLA TILT NO EXCESSIVE ROLL BACK WITH FLEXION AND GOOD STABILITY WITH COMPLETE AND FULL EXTENSION. THE KNEE WAS IRRIGATED WITH STERILE BETADINE AND WATER FOR ABOUT 3 MINUTES. THE BLEEDERS WERE CAUTERIZED. THE ARTHROTOMY WAS REPAIRED WITH NUMBER 1 VICRYL. THE SUB CUTANEOUS LAYER WITH 2-0 VICRYL AND THE SKIN WITH STEPHANIE. THE WOUND WAS WASHED AND A STERILE DRESSING WAS APPLIED. PATIENT WAS EXTUBATED. Estimated Blood Loss -100.0 Pathology None sent Complications No immediate complications Condition Stable Disposition PACU
--- NOTE | 2022-01-21 16:24 | ADMGEN ---
This patient, Matt Prabhakar, was admitted to Medical Room 256-. Patient/family oriented to hospital policies and general routines including ID bracelet, bed and alarms, visiting hours, pain management, procedures, bathroom and other care routines, personal items, smoking policy, room service/diet, and visiting hours. Information on how to activate the Rapid Response Team has been discussed. Patient/Family are encouraged to report perceived risks to care and to ask questions if they do not understand what they are told or what they should do.
[2022-01-21] MEDS: oxyCODONE/ACETAMINOPHEN (*CRX) 5-325 MG TABLET 2 TABLET PO (17:12)
[2022-01-21] MEDS: SENNA/DOCUSATE SODIUM TABLET 2 TAB PO (17:15)
[2022-01-21] MEDS: hydroCHLOROthiazide 6.25 MG TABLET PO (17:16)
[2022-01-21] MEDS: LOSARTAN POTASSIUM 25 MG TABLET PO (17:17)
[2022-01-21] MEDS: oxyCODONE/ACETAMINOPHEN (*CRX) 5-325 MG TABLET 1 TABLET PO (20:56)
[2022-01-21] MEDS: FAMOTIDINE 20 MG TABLET PO (20:57)
[2022-01-21] MEDS: AZELASTINE HCL NASAL 0.1% 137 MCG/SPR 30 ML BTL 1 SPRAY NASAL (20:57)
[2022-01-21] MEDS: FLUTICASONE/SALMETEROL 230-21 MCG INHALER 1 PUFF 2 PUFF INHALATION (21:58)
--- NOTE | 2022-01-21 22:56 | PC.NURSE ---
Patient up in chair this shift as per protocol. Tolerating well.
[2022-01-22] MEDS: oxyCODONE/ACETAMINOPHEN (*CRX) 5-325 MG TABLET 2 TABLET PO ×3 (01:08→13:49)
[2022-01-22 02:10] VITALS: BP 132/80; PULSE 76; RESP 16; TEMP 36.1; O2SAT 94
[2022-01-22] MEDS: ceFAZolin 2 GM/D5W 50 ML 2 GM/50 ML BAG IVPB ×2 (02:30→11:51)
[2022-01-22 06:00] VITALS: BP 126/82; PULSE 71; RESP 16; TEMP 36.5; O2SAT 94
[2022-01-22 06:03] LABS: Basophils Percent Auto 0.1 % (0.2-1.2); Eosinophils Percent Auto 0.4 % (0-4.4); Hemoglobin 10.7 g/dL (14.0-18.0); Immature Granulocyte Absolute 0.03 K/mm3 (0.00-0.031); Immature Granulocyte Percent A 0.3 % (0-0.5); Lymphocytes Absolute Auto 1.56 K/mm3 (0.9-3.2); Lymphocytes Percent Auto 16.9 % (18.3-44.2); Mean Corpuscular HGB Conc 31.5 g/dl (32-36); Mean Corpuscular Hemoglobin 20.6 pg (26-34); Mean Corpuscular Volume 65.4 fl (80-100); Mean Platelet Volume 9.5 fl (7.4-10.4); Monocytes Absolute Auto 0.7 K/mm3 (0.1-0.6); Monocytes Percent Auto 7.5 % (2.6-8.5); Neutrophils Absolute Auto 6.9 K/mm3 (1.3-6.7); Neutrophils Percent Auto 74.8 % (45.5-73.1); Platelet Count Result 167 k/mm3 (150-375); Red Cell Distribution Width 15.1 % (11.5-14.5); White Blood Count 9.2 K/mm3 (4.5-10.0)
[2022-01-22 06:06] LABS: Anion Gap 2 mmol/L (8-16); Blood Urea Nitrogen 9 mg/dL (9-20); Calcium 8.2 mg/dL (8.4-10.2); Carbon Dioxide 30 mmol/L (22-30); Chloride 101 mmol/L (98-107); Estimated CRCL calculation 96 ml/min; Estimated Glomerular Filt Rate > 60; Glucose 98 mg/dL (65-110); Potassium 3.7 mmol/L (3.4-5.0); Sodium 133 mmol/L (137-145)
[2022-01-22 07:00] LABS: Hypochromasia 1+ (NORMAL); Microcytosis 1+ (NORMAL); Ovalocytes 1+ (NORMAL); Platelet Estimate Adequate (Adequate); Schistocytes None Seen (NORMAL)
[2022-01-22] MEDS: FLUTICASONE/SALMETEROL 230-21 MCG INHALER 1 PUFF 2 PUFF INHALATION (08:11)
[2022-01-22] MEDS: ONDANSETRON INJ 4 MG/2 ML VIAL IV PUSH (09:14)
[2022-01-22] MEDS: SENNA/DOCUSATE SODIUM TABLET 2 TAB PO (09:15)
[2022-01-22] MEDS: FAMOTIDINE 20 MG TABLET PO (09:16)
[2022-01-22] MEDS: FINASTERIDE 5 MG TABLET PO (09:16)
[2022-01-22] MEDS: OPTI-GEN TAB 1 TABLET PO (09:16)
[2022-01-22] MEDS: TAMSULOSIN HCL 0.4 MG CAPSULE 0.8 MG PO (09:18)
[2022-01-22] MEDS: RIVAROXABAN 10 MG TABLET PO (09:18)
[2022-01-22 10:30] VITALS: BP 117/63; PULSE 83; RESP 16; TEMP 36.4; O2SAT 99
--- NOTE | 2022-01-22 13:12 | PM.PNORT ---
Progress Note: A&P Assessment and Plan (1) S/P total knee arthroplasty: Qualifiers: Laterality: left Qualified Code(s): Z96.652 - Presence of left artificial knee joint Code(s): Z96.659 - Presence of unspecified artificial knee joint Status: Acute Assessment and Plan: POD #1 : Left TKA Continue PT/OT. WBAT. Walker. HIGH FALL RISK. Continue pain control. Ice Knee. Protect skin. DVT prophylaxis with Xarelto due to NSAID allergy. Tolerated well s/p right TKA. SCDs. Incentive Spirometry Use reviewed. Monitor Dressing. Change prior to discharge. Bowel Regimen. Dispo: Home with Home pending progress with PT/OT Subjective Subjective Date/Time Seen: 01/22/22 13:12 Post Op day: 1 Interval history: POD #1: Left TKA Pain well controlled. No new complaints. Hopeful for discharge home today. Review of Systems Review of Systems: All systems reviewed & are unremarkable except as noted in HPI and below Constitutional: Constitutional: Denies fever(s) and Denies headache(s) ENT: Reports dizziness (with standing x1 this AM ) and Denies headache(s) Cardiovascular: Cardiovascular: Denies chest pain, Denies diaphoresis, Reports lightheadedness, Denies palpitations and Denies dyspnea Respiratory: Respiratory: Denies dyspnea Gastrointestinal: Gastrointestinal: Denies abdominal pain, Denies constipation, Denies nausea and Denies vomiting Genitourinary: Genitourinary: Denies dysuria and Reports nocturia Musculoskeletal: Musculoskeletal: Reports arthralgias (Left Knee ), Reports joint swelling (Left Knee ) and Reports limited range of motion (ROM limited due to recent surgical intervention LEFT Knee ) Neurologic: Denies headache(s) Endocrine: Endocrine: Denies palpitations Exam Const: General: comfortable and no acute distress Resp: Effort & Inspection: normal respiratory effort Cardio: Rate: regular rate Rhythm: regular rhythm GI: GI Palp: Yes Soft to palpation, No Tenderness to palpation present (GI) and No Guarding due to palpation present (GI) Skin: General skin exam: wounds noted (see extremity assessment ) Wounds: wounds noted (see extremity assessment ) Neuro: Cognition (Neuro): normal cognition Other: NV intact aside from block. Moves toes. Sensation intact to light touch. +ankle dorsiflexion/plantarflexion. Extrem: Left lower extremity: normal to inspection, normal capillary refill, knee Details: tenderness (diffuse ) Location: of the patella, swelling (moderate consistent to recent surgery ), abnormal ROM (limited due to recent surgery ) Details: pain with active ROM and pain with passive ROM and ecchymosis (as expected with recent surgery. NO hematoma. ), lower leg (Negative Dave's Sign ), ankle (+ankle dorsiflexion/plantarflexion ) Details: normal to inspection, no edema and normal ROM; no tenderness and no swelling and foot Details: normal capillary refill, toes with normal ROM, vascular exam Details: dorsalis pedis pulse present and motor-sensory exam light-touch normal; no tenderness Other: Incision left TKA dressing c/d/i. No hematoma. No signs of infection. No wound dehiscence. Psych: Mental Status: mental status grossly normal Objective Data Vital Signs Vital Signs: Vital Signs - 24 hr 01/21/22 14:00 01/21/22 14:06 01/21/22 14:20 Temperature 36.4 C L Pulse Rate 91 76 73 Respiratory Rate 12 20 14 Blood Pressure 122/76 118/77 122/79 Pulse Oximetry 95 96 97 Oxygen Delivery Simple Face Mask Simple Face Mask Simple Face Mask Oxygen Flow Rate 8 8 8 01/21/22 14:25 01/21/22 14:30 01/21/22 14:55 Temperature 36.9 C 36.6 C Pulse Rate 77 78 79 Respiratory Rate 14 14 14 Blood Pressure 130/85 126/80 127/86 Pulse Oximetry 94 96 97 Oxygen Delivery Room Air Nasal Cannula Nasal Cannula Oxygen Flow Rate 2 2 01/21/22 14:45 01/21/22 15:10 01/21/22 15:25 Temperature 36.3 C L Pulse Rate 69 82 85 Respiratory Rate 14 14 15 Blood Pressure 130/84 129/92 H
--- NOTE | 2022-01-22 13:23 | PM.DS ---
DS: Admitting Diagnosis Discharge Date 01/22/22 Admitting Diagnosis Left Knee DJD DS: Discharge Diagnosis Discharge Diagnosis (1) S/P total knee arthroplasty: Qualifiers: Laterality: left Qualified Code(s): Z96.652 - Presence of left artificial knee joint Code(s): Z96.659 - Presence of unspecified artificial knee joint Status: Acute Assessment and Plan: POD #1 : Left TKA Continue PT/OT. WBAT. Walker. HIGH FALL RISK. Continue pain control. Ice Knee. Protect skin. DVT prophylaxis with Xarelto due to NSAID allergy. Tolerated well s/p right TKA. SCDs. Incentive Spirometry Use reviewed. Monitor Dressing. Change prior to discharge. Bowel Regimen. Dispo: Home with Home pending progress with PT/OT DS: Summary Hospital Course Reason for hospitalization: Left TKA Hospital Course: 61 year old male admitted s/p left TKA for postoperative medical management, paint control and mobilization with PT/OT. Patient progressed well with PT/OT. Pain and vitals stable throughout. They have been cleared to be discharged home with home health at this time. Follow up planned for 3 weeks in the outpatient orthopedic clinic with Dr. Carvajal. Status at Discharge Functional status at discharge: uses cane/walker Overall status at discharge: patient is progressing back to baseline Time Spent with Patient Time attestation: Total time spent providing and/or coordinating discharge services: Exam Const: General: comfortable and no acute distress Resp: Effort & Inspection: normal respiratory effort Cardio: Rate: regular rate Rhythm: regular rhythm Skin: General skin exam: wounds noted (see extremity assessment ) Wounds: wounds noted (see extremity assessment ) Neuro: Cognition (Neuro): normal cognition Other: NV intact aside from block. Moves toes. Sensation intact to light touch. +ankle dorsiflexion/plantarflexion. Extrem: Left lower extremity: normal to inspection, normal capillary refill, knee Details: tenderness (diffuse ) Location: of the patella, swelling (moderate consistent to recent surgery ), abnormal ROM (limited due to recent surgery ) Details: pain with active ROM and pain with passive ROM and ecchymosis (as expected with recent surgery. NO hematoma. ), lower leg (Negative Dave's Sign ), ankle (+ankle dorsiflexion/plantarflexion ) Details: normal to inspection, no edema and normal ROM; no tenderness and no swelling and foot Details: normal capillary refill, toes with normal ROM, vascular exam Details: dorsalis pedis pulse present and motor-sensory exam light-touch normal; no tenderness Other: Incision left TKA dressing c/d/i. No hematoma. No signs of infection. No wound dehiscence. Psych: Mental Status: mental status grossly normal DS: Data Data Completed and Pending Labs on day of discharge: Labs from last 24 hours 01/22/22 01/22/22 05:37 05:37 WBC 9.2 RBC 5.20 Hgb 10.7 L Hct 34.0 L MCV 65.4 L MCH 20.6 L MCHC 31.5 L RDW 15.1 H Plt Count 167 MPV 9.5 Immature Gran % (Auto) 0.3 Neut % (Auto) 74.8 H Lymph % (Auto) 16.9 L [place] % (Auto) 7.5 Eos % (Auto) 0.4 Baso % (Auto) 0.1 L Lymph # (Auto) 1.56 [place] # (Auto) 0.7 H Eos # (Auto) 0.0 Baso # (Auto) 0.0 Abs Immat Gran (auto) 0.03 Absolute Neuts (auto) 6.9 H Absolute Nucleated RBC 0.0 Nucleated RBC % 0.0 Platelet Estimate Adequate Hypochromasia 1+ Microcytosis 1+ Ovalocytes 1+ Schistocytes None seen Sodium 133 L Potassium 3.7 Chloride 101 Carbon Dioxide 30 Anion Gap 2 L BUN 9 D Creatinine 0.70 Estim Creat Clear Calc 96 Estimated GFR > 60 Glucose 98 Calcium 8.2 L Discharge Plan Discharge Patient Disposition: Home Health Service Discharge Instructions: Post Op Total Knee Replacement Instructions Dr. Chucho Carvajal [phone] Your dressing will be changed prior to your discharge. You will be sent home with one additional dressing
--- NOTE | 2022-01-22 13:53 | P.PNAN_ITS ---
Anes - Prog Note Post-Op Date/Time: 01/22/22 13:53 Vital Signs: Last Vital Signs Temp 36.4 C 01/22/22 10:30 Pulse 83 01/22/22 10:30 Resp 16 01/22/22 10:30 BP 117/63 01/22/22 10:30 Pulse Ox 99 01/22/22 10:30 O2 Del Method Room Air 01/22/22 08:00 O2 Flow Rate 2 01/21/22 15:45 Pain Score (VAS): 0 I/O: Intake & Output 01/21/22 01/22/22 01/22/22 23:59 07:59 15:59 Intake Total 540 50 720 Output Total 425 2445 225 Balance 115 -9427 495 Laboratory Tests 01/22/22 05:37 01/22/22 05:37 01/22/22 01/22/22 05:37 05:37 WBC 9.2 RBC 5.20 Hgb 10.7 L Hct 34.0 L MCV 65.4 L MCH 20.6 L MCHC 31.5 L RDW 15.1 H Plt Count 167 MPV 9.5 Immature Gran % (Auto) 0.3 Neut % (Auto) 74.8 H Lymph % (Auto) 16.9 L [place] % (Auto) 7.5 Eos % (Auto) 0.4 Baso % (Auto) 0.1 L Lymph # (Auto) 1.56 [place] # (Auto) 0.7 H Eos # (Auto) 0.0 Baso # (Auto) 0.0 Abs Immat Gran (auto) 0.03 Absolute Neuts (auto) 6.9 H Absolute Nucleated RBC 0.0 Nucleated RBC % 0.0 Platelet Estimate Adequate Hypochromasia 1+ Microcytosis 1+ Ovalocytes 1+ Schistocytes None seen Sodium 133 L Potassium 3.7 Chloride 101 Carbon Dioxide 30 Anion Gap 2 L BUN 9 D Creatinine 0.70 Estim Creat Clear Calc 96 Estimated GFR > 60 Glucose 98 Calcium 8.2 L Patient Feedback: Patient satisfied with anesthetic care.
--- NOTE | 2022-01-22 17:31 | PCCCNOTE ---
Phone call received from [address] [place] [address] about Xarelto not being covered for the patient. Phone call requested to patient's [facility]. Called [facility] and she is unsure why is isn't covered and pharmacy did not indicate. Called to [facility] pharmacy and per pharmacy care coordinator a prior auth is needed. Called to [facility] at [phone] and spoke with Jenaro, Prior Auth initiated and approval received # [id number]. Callled back to [facility] pharmacy and medication did go through now. Called back patient's and notified of prior auth approval. Provided her with the approval # and the prior authorization phone # if she has any problems.
== END 2022-01-22 16:00 | disposition home health service (06) ==
LOC: ANHSURGERY 09:13 → ANH2MED 16:09
PROVIDERS: Visit Provider Orthopaedic Surgery
PROC: (CPT 27447; principal; 2022-01-21 11:00)
DX: M17.12 Unilateral primary osteoarthritis, left knee (principal); G89.18 Other acute postprocedural pain; D64.9 Anemia, unspecified; J45.909 Unspecified asthma, uncomplicated; I10 Essential (primary) hypertension; D56.9 Thalassemia, unspecified; Z82.49 Family history of ischemic heart disease and other diseases of the circulatory system; E66.3 Overweight; Z68.25 Body mass index [BMI] 25.0-25.9, adult; F10.90 Alcohol use, unspecified, uncomplicated
CPT/HCPCS: 27447; 64447; 36415; 73560; 80048; 85025; 86850; 86900; 86901; 94640; 97110; 97116; 97161; 97165; 97530; 97535; A9270; C1713; C1776; J0171; J0690; J1100; J1170; J2250; J2270; J2405; J2704; J2795; J3010; J7120

== ENCOUNTER 2022-05-11 09:41 | Emergency (ER) | payer OTHER, SELFPAY ==
[2022-05-11 09:50] VITALS: BP 141/100; PULSE 93; RESP 16; TEMP 36.8; O2SAT 99
--- NOTE | 2022-05-11 09:50 | ED.EYEPROB ---
HPI - Eye Problem General Chief complaint: Eye Problems Stated complaint: EYE REDNESS/SWELLING Time Seen by Provider: 05/11/22 09:50 Source: patient Mode of arrival: ambulatory Limitations: no limitations History of Present Illness HPI Narrative: 61-year-old male presents with complaint redness, swelling drainage to right eye for 2 days. No vision change. Reports itching. also reports that he is currently taking doxycycline for a sinus infection. Reports he has been taking antibiotic for 4 days. Nasal congestion is not improving and is now having pain, decreased hearing to right ear. Is taking nfuz-dol-ozwiygv Sudafed. Afebrile. All systems reviewed and negative except as noted above. Related Data Home Medications Medication Instructions Recorded Confirmed [id number]-jbkzwyqk-uyammp tablet 1 tablet PO DAILY 11/07/19 04/30/22 tamsulosin 0.4 mg capsule 0.8 mg PO DAILY 11/07/19 04/30/22 acetaminophen 325 mg capsule 650 mg PO PRN PRN Pain 05/22/21 04/30/22 (Tylenol) albuterol 90 mcg/actuation aerosol 1 mcg inhalation PRN PRN Shortness 05/22/21 04/30/22 inhaler Of Breath azelastine 137 mcg (0.1 %) nasal 1 spray intranasal HS 05/22/21 04/30/22 spray aerosol fluticasone furoate 200 2 ea inhalation PRN PRN Shortness 05/22/21 04/30/22 mcg-vilanterol 25 mcg/dose Of Breath inhalation powder (Breo Ellipta) diphenhydramine HCl 25 mg capsule 25 mg PO HS PRN Congestion 01/02/22 04/30/22 (Benadryl) finasteride 5 mg tablet 5 mg PO DAILY 01/02/22 04/30/22 losartan 50 mg-hydrochlorothiazide 0.5 tablet PO QPM 01/02/22 04/30/22 12.5 mg tablet phenylephrine HCl 10 mg tablet 10 mg PO Q4-6H PRN Congestion 01/02/22 04/30/22 pseudoephedrine HCl 120 mg 120 mg PO HS PRN Congestion 01/02/22 04/30/22 capsule,extended release vit C 250 mg-vit E 90 mg-zinc 40 1 tablet PO DAILY 01/02/22 04/30/22 mg-copper 1 ul-jcwbxo-tsqiwo capsule (PreserVision AREDS-2) doxycycline hyclate 100 mg tablet mg 05/11/22 05/11/22 Allergies Allergy/AdvReac Type Severity Reaction Status Date / Time NSAIDS (Non-Steroidal Allergy Difficulty Verified 05/11/22 09:57 Anti-Inflamma Breathing statin AdvReac Unknown Joint/ Uncoded 05/11/22 09:57 MUSCLE PAIN Review of Systems Review of Systems: CONSTITUTIONAL: Denies fever, chills, or sweats. EYES: Denies visual changes. Reports right eye redness, swelling and discharge. ENT: Reports rhinorrhea, congestion, sinus pressure. Right ear pain and decreased hearing. Denies sore throat CARDIOVASCULAR: Denies chest pain, palpitations, or edema. RESPIRATORY: Denies cough or dyspnea. GASTROINTESTINAL: Denies abdominal pain, nausea, vomiting, or diarrhea. GENITOURINARY: Denies dysuria or hematuria. SKIN: Denies rash or itching. MUSCULOSKELETAL: Denies back pain, joint pain, or myalgia. NEUROLOGIC: Denies headache, numbness, or weakness. PSYCHIATRIC: Denies anxiety or depression. All other systems reviewed are negative, except as documented in HPI. [facility] Past Medical History Medical History Anemia Asthma Bilateral knee pain Degenerative joint disease of knee Hypertension Kidney stones Knee effusion Left knee DJD Right knee DJD Sinusitis Skin cancer Thalassemia Surgical History Surgical History H/O lithotripsy S/P total knee arthroplasty S/P total knee arthroplasty Family History Family History Other Diabetes mellitus Hypertension Social History Social History Social History: patient's shared will be his surrogate and patient wishes to be a full code at this time. They have 2 kids 26 and 22-year-old with no pets at home. Patient is Judaism Smoking status: Never smoker Second hand tobacco smoke exposure: No Alcohol intake: current Drinks per we
== END 2022-05-11 10:04 | disposition home or self-care (01) ==
PROVIDERS: Emergency Provider Nurse Practitioner Family
DX: H66.91 Otitis media, unspecified, right ear (principal); H10.31 Unspecified acute conjunctivitis, right eye; I10 Essential (primary) hypertension; Z85.828 Personal history of other malignant neoplasm of skin
CPT/HCPCS: 99213; G0463

== ENCOUNTER 2022-06-18 13:24 | Emergency (ER) | payer OTHER, SELFPAY ==
[2022-06-18 13:35] VITALS: BP 135/83; PULSE 88; RESP 20; TEMP 36.8; O2SAT 99
--- NOTE | 2022-06-18 13:37 | ED.EAR ---
HPI - Ear Problem General Chief complaint: Ear Stated complaint: EAR CLOGGED Source: patient and RN notes reviewed History of Present Illness HPI Narrative: 61-year-old male presents to urgent care with complaints of right ear fullness. Patient states he was seen here approximately 1 month ago and diagnosed with a sinus infection and ear infection. Patient states his sinus infection he believes cleared up, however, his ear never really improved. Patient denies any ear pain. Denies any ear drainage. Patient denies any fevers, chills, sore throat, chest pain, or shortness of breath. Patient has attempted putting peroxide in his right ear without relief. Patient also takes a Benadryl every night and takes this a during the day as well as using a nasal spray without any relief. Related Data Home Medications Medication Instructions Recorded Confirmed [id number]-mxcqydug-ocxqih tablet 1 tablet PO DAILY 11/07/19 06/18/22 tamsulosin 0.4 mg capsule 0.8 mg PO DAILY 11/07/19 06/18/22 acetaminophen 325 mg capsule 650 mg PO PRN PRN Pain 05/22/21 06/18/22 (Tylenol) albuterol 90 mcg/actuation aerosol 1 mcg inhalation PRN PRN Shortness 05/22/21 06/18/22 inhaler Of Breath azelastine 137 mcg (0.1 %) nasal 1 spray intranasal HS 05/22/21 06/18/22 spray aerosol fluticasone furoate 200 2 ea inhalation PRN PRN Shortness 05/22/21 06/18/22 mcg-vilanterol 25 mcg/dose Of Breath inhalation powder (Breo Ellipta) diphenhydramine HCl 25 mg capsule 25 mg PO HS PRN Congestion 01/02/22 06/18/22 (Benadryl) finasteride 5 mg tablet 5 mg PO DAILY 01/02/22 06/18/22 losartan 50 mg-hydrochlorothiazide 0.5 tablet PO QPM 01/02/22 06/18/22 12.5 mg tablet phenylephrine HCl 10 mg tablet 10 mg PO Q4-6H PRN Congestion 01/02/22 06/18/22 pseudoephedrine HCl 120 mg 120 mg PO HS PRN Congestion 01/02/22 06/18/22 capsule,extended release vit C 250 mg-vit E 90 mg-zinc 40 1 tablet PO DAILY 01/02/22 06/18/22 mg-copper 1 ht-szinto-apcbeg capsule (PreserVision AREDS-2) doxycycline hyclate 100 mg tablet mg 05/11/22 05/11/22 Allergies Allergy/AdvReac Type Severity Reaction Status Date / Time NSAIDS (Non-Steroidal Allergy Difficulty Verified 06/18/22 13:34 Anti-Inflamma Breathing statin AdvReac Unknown Joint/ Uncoded 06/18/22 13:34 MUSCLE PAIN Review of Systems Review of Systems: Pertinent positives and pertinent negatives per HPI. [facility] Past Medical History Medical History Anemia Asthma Bilateral knee pain Degenerative joint disease of knee Hypertension Kidney stones Knee effusion Left knee DJD Right knee DJD Sinusitis Skin cancer Thalassemia Surgical History Surgical History H/O lithotripsy S/P total knee arthroplasty S/P total knee arthroplasty Family History Family History Other Diabetes mellitus Hypertension Social History Social History Social History: patient's shared will be his surrogate and patient wishes to be a full code at this time. They have 2 kids 26 and 22-year-old with no pets at home. Patient is Sabianist Smoking status: Never smoker Second hand tobacco smoke exposure: No Alcohol intake: current Drinks per week: 1 Substance use: never Lack of Transportation: No Lack of Food: Never True Current Housing: I Have Housing Concerned About Future Housing: No Difficulty Paying Gas/Electric Bills: No Difficulty Paying for Meds: No Currently Unemployed: No Education: Bachelor's Degree Difficulty w/ Childcare or Family Care: No Living arrangements: with family Additional living arrangements comments: & CHILDREN Occupation/Education: occupation Additional occupation/education comments: manager of data Gender identity (if verbalized by t
== END 2022-06-18 13:51 | disposition home or self-care (01) ==
PROVIDERS: Emergency Provider Nurse Practitioner Family
DX: H66.91 Otitis media, unspecified, right ear (principal); J45.909 Unspecified asthma, uncomplicated; I10 Essential (primary) hypertension; M17.0 Bilateral primary osteoarthritis of knee; Z85.828 Personal history of other malignant neoplasm of skin; D56.9 Thalassemia, unspecified
CPT/HCPCS: 99213; G0463

== ENCOUNTER 2025-02-18 17:42 | Emergency (ER) | payer BC, SELFPAY ==
--- NOTE | 2025-02-18 17:44 | ED.URI ---
HPI - URI/Sore Throat General Chief Complaint: Upper Respiratory Infection Stated Complaint: low grade fever Time Seen by Provider: 02/18/25 17:44 Source: patient Mode of arrival: ambulatory Limitations: no limitations History of Present Illness HPI Narrative: Matt is a 64-year-old male patient presenting to the clinic today with complaints of low-grade fever, cough, sinus congestion, sore throat, sinus pressure, headache, body aches x 1 week. He reports he [place]. He is wanting to get better before he goes on his trip. MD elicited complaint: sore throat and nasal congestion Related Data Home Medications ?Medication ?Instructions ?Recorded ?Confirmed ?Last Taken ?Type phbldivctxrf-pmjgxseb-vjiumb tablet 1 tablet PO DAILY 11/07/19 02/18/25 01/17/22 History tamsulosin 0.4 mg capsule 0.8 mg PO DAILY 11/07/19 02/18/25 01/20/22 History acetaminophen 325 mg capsule 650 mg PO PRN PRN Pain 05/22/21 02/18/25 01/20/22 History (Tylenol) albuterol 90 mcg/actuation aerosol 1 mcg inhalation PRN PRN Shortness 05/22/21 02/18/25 Unknown History inhaler Of Breath azelastine 137 mcg (0.1 %) nasal 1 spray intranasal HS 05/22/21 02/18/25 06/04/21 History spray fluticasone furoate 200 2 ea inhalation PRN PRN Shortness 05/22/21 02/18/25 01/21/22 History mcg-vilanterol 25 mcg/dose Of Breath inhalation powder (Breo Ellipta) diphenhydramine HCl 25 mg capsule 25 mg PO HS PRN Congestion 01/02/22 02/18/25 01/20/22 History (Benadryl) finasteride 5 mg tablet 5 mg PO DAILY 01/02/22 02/18/25 01/20/22 History losartan 50 mg-hydrochlorothiazide 0.5 tablet PO QPM 01/02/22 02/18/25 01/20/22 History 12.5 mg tablet phenylephrine HCl 10 mg tablet 10 mg PO Q4-6H PRN Congestion 01/02/22 02/18/25 01/20/22 History pseudoephedrine HCl 120 mg 120 mg PO HS PRN Congestion 01/02/22 02/18/25 01/20/22 History capsule,extended release vit C 250 mg-vit E 90 mg-zinc 40 1 tablet PO DAILY 01/02/22 02/18/25 01/17/22 History mg-copper 1 ek-rddvcu-xldevk capsule (PreserVision AREDS-2) Allergies Allergy/AdvReac Type Severity Reaction Status Date / Time amoxicillin Allergy Unknown Unknown Verified 02/18/25 17:53 NSAIDS (Non-Steroidal Allergy Difficulty Verified 02/18/25 17:53 Anti-Inflamma Breathing statin AdvReac Unknown Joint/ Uncoded 01/07/23 13:53 MUSCLE PAIN Review of Systems Review of Systems: Pertinent positives per HPI. Patient denies any rash, visual changes, dizziness, shortness of breath, chest pain, palpitations, nausea, vomiting, diarrhea, constipation, abdominal pain, or any urinary issues. [facility] Past Medical History Medical History Sinusitis Thalassemia Left knee DJD Right knee DJD Knee effusion Degenerative joint disease of knee Skin cancer Anemia Kidney stones Hypertension Asthma Bilateral knee pain Surgical History Surgical History S/P total knee arthroplasty H/O lithotripsy S/P total knee arthroplasty Family History Family History Other Diabetes mellitus Hypertension Social History Social History Social History: patient's shared will be his surrogate and patient wishes to be a full code at this time. They have 2 kids 26 and 22-year-old with no pets at home. 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 There is no relevant family history pertinent to the patient complaint. Exam Narrative: General: Well-developed, well nourished, in no apparent distress Head: Normocephalic, atraumatic Eyes: Pupils equally round and reactive to light bilaterally, EOM intact, sclera and conjunctive clear, no discharge, lids normal Ears: TMs intact and congested, ear canals clear, no drainage, grossly hearing normal. Nose: Nares patent, green nasal discharge, moderate inflammation, maxillary sinus tenderness. Mouth: Oral pharynx red without lesions or masses, good dentition, MMM. Postnasal drip Neck: Supple, trachea midline, no enlargement of anterior or posterior cervical nodes, no thyroid masses or goiter palpable. Cardio: Regular rate and rhythm, s1 and s2 normal, no murmur appreciated. Resp: Clear to auscultation bilaterally, no rhonchi, rales, wheezing or rubs Course Course Level of Care: Express Care Visit MDM MDM Narrative Medical decision making narrative: At the time of visit patient is resting comfortably on the exam table. Patient appears to be nontoxic. Complaints of low-grade fever, cough, sinus congestion, sore throat, sinus pressure, headache, body aches x 1 week. He reports [place]. He is wanting to get better before he goes on his trip. Is blowing out green nasal drainage. On exam patient has TMs intact and congested, green nasal drainage, moderate turbinate inflammation, oral pharynx red with postnasal drip, lung sounds are clear, heart rates regular rate and rhythm. COVID and influenza testing were ordered. Labs: COVID and influenza testing was negative in the clinic today. Plan: I suspect patient has sinusitis. Prescription for prednisone and doxycycline was sent to the pharmacy. Supportive measures were discussed with the patient and they voiced understanding discharge instructions and agrees to treatment plan. Return precautions reviewed Differential Diagnosis Differential Diagnosis: Differential diagnostic considerations for upper respiratory infection include upper respiratory infection, croup, otitis media, sinusitis, viral infection, bronchitis, influenza, pharyngitis, strep, uvulitis. Discharge Plan Discharge Clinical Impression: Sinusitis Qualifiers: Sinusitis location: maxillary Chronicity: acute Recurrence: non-recurrent Qualified Code(s): J01.00 - Acute maxillary sinusitis, unspecified Patient Disposition: Home Condition: Stable Instructions: Antibiotic Form, Sinusitis (ED) Additional Instructions: Take prescription medications only as prescribed-prednisone and doxycycline Increase fluids and stay well hydrated May take Tylenol or motrin as directed on bottle for pain/fever May use Flonase 1 spray in each nare daily May take OTC antihistamines such as Zyrtec or Claritin daily as directed on bottle May apply Vicks vapor rub to chest to open sinuses Sinus rinses for congestion Cepacol spray, cough drops, throat lozenges, warm tea with honey/lemon, gargle salt water to soothe throat BRAT diet for diarrhea Clear liquids x 24 hours then advance as tolerated for nausea/vomiting Go to the ED if you develop a worsening in your condition- high fever not controlled by Tylenol or Motrin, dehydration, weakness, lethargy, shortness of breath, or chest pain. Follow up with your PCP in 3-5 days if symptoms persist. Patient Language: Hebrew Prescriptions: New prednisone 20 mg tablet 40 mg PO DAILY 5 Days Qty: 10 0RF doxycycline monohydrate 100 mg capsule 100 mg PO BID 7 Days Qty: 14 0RF No Action tamsulosin 0.4 mg capsule 0.8 mg PO DAILY Rx Instructions: TAKES HS edxgcwogqqjc-ibryosbu-qpkmxn Tablet 1 tablet PO DAILY fluticasone furoate-vilanterol [Breo Ellipta] 200-25 mcg/dose blister with device 2 ea INHALATION PRN PRN (Reason: Shortness Of Breath) azelastine 137 mcg (0.1 %) aerosol,spray 1 spray INTRANASAL HS albuterol 90 mcg/actuation Aerosol 1 mcg INHALATION PRN PRN (Reason: Shortness Of Breath) acetaminophen [Tylenol] 325 mg Capsule 650 mg PO PRN PRN (Reason: Pain) losartan-hydrochlorothiazide 50-12.5 mg tablet 0.5 tablet PO QPM pseudoephedrine HCl 120 mg Capsule, Extended Release 120 mg PO HS PRN (Reason: Congestion) diphenhydramine HCl [Benadryl] 25 mg Capsule 25 mg PO HS PRN (Reason: Congestion) finasteride 5 mg tablet 5 mg PO DAILY phenylephrine HCl 10 mg Tablet 10 mg PO Q4-6H PRN (Reason: Congestion) PreserVision AREDS-2 250-90-40-1 mg Capsule 1 tablet PO DAILY Follow-up/Referrals: Reilly,Calvin Orellana MD [Primary Care Provider, Unknown] Time of Disposition: 18:05 Quality NIHSS Nursing Documentation ED NIHSS nursing documentation: reviewed/agree
[2025-02-18 17:56] VITALS: BP 154/83; PULSE 87; RESP 16; TEMP 36.3; O2SAT 99
[2025-02-18 18:17] LABS: EDCOVIDSCREEN Negative (Negative); EDINFLUASCREEN Negative (Negative); EDINFLUBSCREEN Negative (Negative)
== END 2025-02-18 18:15 | disposition home or self-care (01) ==
PROVIDERS: Emergency Provider Nurse Practitioner Family; PCP Family Medicine
DX: J01.00 Acute maxillary sinusitis, unspecified (principal); Z20.822 Contact with and (suspected) exposure to COVID-19; I10 Essential (primary) hypertension; J45.909 Unspecified asthma, uncomplicated; D64.9 Anemia, unspecified; M17.0 Bilateral primary osteoarthritis of knee; D56.9 Thalassemia, unspecified; Z85.828 Personal history of other malignant neoplasm of skin
CPT/HCPCS: 87426; 87804; 99213; G0463